=== PATIENT | female | born 2000 | race American Indian/Alaskan Native ===

== ENCOUNTER 2019-04-08 01:57 | Inpatient (IN) | payer MEDICAID ==
[2019-04-08] MEDS ORDERED: Methylergonovine 0.2 MG/1 ML Amp IM PRN (03:22)
[2019-04-08] MEDS ORDERED: Carboprost Tromethamine 250 MCG/1 ML Amp IM PRN (03:22)
[2019-04-08] MEDS ORDERED: Lidocaine 1% 30 ML SDV INJECT PRN (03:22)
[2019-04-08] MEDS ORDERED: Tranexamic Acid 1,000 MG in Sodium Chloride 0.9% 100 ML IV PRN (03:22)
[2019-04-08] MEDS ORDERED: Misoprostol 400 MCG (4 X 100 MCG TAB) RECTAL PRN (03:22)
[2019-04-08] MEDS ORDERED: Lactated Ringers 1,000 ML IV ONE (03:22)
[2019-04-08] MEDS ORDERED: Sodium Chloride 0.9% 10 ML Syringe FLUSH PRN ×2 (03:22→09:07)
[2019-04-08] MEDS ORDERED: Ondansetron 4 MG/2 ML SDV IVPUSH PRN (03:22)
[2019-04-08] MEDS ORDERED: Oxytocin/Normal Saline 30 UNIT/500 ML BAG IV SCH (03:30)
[2019-04-08] MEDS: Lactated Ringers 1,000 ML IV SCH ×2 (04:51→05:18)
[2019-04-08] MEDS ORDERED: fentaNYL 100 MCG/2 ML SDV ONE (05:08)
[2019-04-08] MEDS ORDERED: EPINEPHrine 1 MG/1 ML Amp ONE (05:08)
[2019-04-08] MEDS ORDERED: Sodium Bicarbonate 4.2% 2.5 MEQ/5 ML SDV ONE (05:08)
--- NOTE | 2019-04-08 05:39 | PCM.SN ---
- Free Text/Narrative Note: Intrathecal, sitting position, sterile prep and drape, 1% lidocaine w bicarb for skinwheal to L3 L4 interspace, introducer, 24 ga pencan x 1. Pos CSF, neg heme, neg parasthesia. 0.1 ml pf 1:1000 epi, 15 mcg pf sufenta, 35 mcg pf fentanyl, 0.4 ml pf ns and 6 mg of 0.75% pf bupivacaine injected after CSF aspiration. Pt to L lateral position. Procedure time 0505 to 0529
--- NOTE | 2019-04-08 09:06 | HP ---
PATIENT IDENTIFICIATION: Sania Waldron is a 18-year-old, G1, P0, interim at 39-3/7 weeks, confirmed with 12-week ultrasound who presents with vaginal leaking and contractions. HISTORY OF PRESENT ILLNESS: The patient states she has had vaginal leaking at approximately 1930 hours on 04/07/2019 where she was at [place], described as clear fluid enough to soak through her clothing and getting worse over time associated with contractions that started at the same time, increasing in frequency and intensity to the point that they are coming every 2 to 5 minutes, felt in the lower abdomen, rated 5 to 6 out of 10 on a pain scale. To put this in context, she is GBS negative. Had anemia of with hemoglobin as low as 9.6 on 01/18/2019 and she is GBS negative from 03/15/2019. Records were called for, reviewed as below, and supplemented by patient history. ANTEPARTUM LABORATORIES: ABO blood type O positive, negative antibody. Rubella immune. Syphilis antibody is nonreactive. Negative hepatitis B surface antigen, hep C, HIV, GC, and Chlamydia. Wet prep was within normal limits. One- hour GTT on 01/18/2019 was 73. Hemoglobin was 9.6 and GBS negative on 03/15/2019. ALLERGIES: None. MEDICATIONS: 1. vitamins. 2. Iron sulfate 325 b.i.d. PAST MEDICAL HISTORY: Remarkable for depression and pre was on medications for this. PAST SURGICAL HISTORY: Negative. FAMILY HISTORY: Diabetes in paternal grandmother. Negative family history of anesthesia, bleeding problems, or defects. SOCIAL HISTORY: The patient lives in [place] with her parents. Father of baby is Neil Silva. He lives in [place] and was planning on getting back to [place]. The patient denies any alcohol, tobacco, or drug use. REVIEW OF SYSTEMS: Otherwise reviewed and felt to be contributory for mild trace lower extremity edema bilaterally. Otherwise, review of systems fully reviewed and felt to be noncontributory other than the above. OBJECTIVE: Vital Signs: Blood pressure 132/82, heart rate 88, the patient feels afebrile. Appearance: Female, appears her stated age, acting appropriate for age. Nontoxic appearance. Breathing through contractions, but answering questions appropriately in between. HEENT: Head atraumatic. EOMs intact. PERRLA. No scleral icterus. No obvioius otorhinorrhea. Mucous membranes moist. Neck: No obvious tenderness. Lungs: Clear to auscultation bilaterally. No increased work of breathing. Heart: S1, S2 rhythm rate and rhythm. Abdomen: Gravid. Arnav indeterminate. Nontender, nondistended. Bowel sounds positive. No organomegaly, pulsatile masses, or obvious hernias. No rebound, rigidity, or guarding. Monitors applied. : Normal external female genitalia. Normal position and presentation of the urethra. Vaginal exam, initially done with AmniSure was positive and then per nurse was tight 3 cm, 100% effaced, -2 to -3 station. My examination shortly thereafter did reveal her to be 3 cm, 100% effaced, 0 to -1 station, vertex suspected and a forebag was felt and artificial rupture of membranes of this was done after discussing with the patient yielding clear fluid. INVESTIGATIONS: CBC pending. NST was found to be reactive and reassuring with heart tone baseline in the 140s to 150s. Tocometer reveals contractions every 2 to 5 minutes. ASSESSMENT AND PLAN: 1. Intrauterine at 39-3/7 weeks confirmed with 12-week ultrasound. 2. Spontaneous rupture of membranes at 1930 hours on 04/07/2019. 3. Forebag rupture of membranes at approximately 3:30 a.m. as above. 4. Occasional contractions with suspected labor. 5. Group B Streptococcus negative. 6. Anemia of . Hemoglobin pending. 7. G1, P0. PLAN: The patient will be admitted. We will start Pitocin as needed and follow clinically and closely thereafter. Discussed with the patient these plans. She understands and agrees with the above treatment plan. [facility] /[id number]
[2019-04-08] MEDS ORDERED: Simethicone 80 MG Tab.Chew PO PRN (09:07)
[2019-04-08] MEDS ORDERED: Zolpidem 5 MG Tab PO PRN (09:07)
[2019-04-08] MEDS ORDERED: Oxytocin 10 Units/1 ML SDV IM PRN (09:07)
[2019-04-08] MEDS ORDERED: Benzocaine/Menthol 20%-0.5% Spray 56 GM Canister TOP PRN (09:07)
[2019-04-08] MEDS: Ibuprofen 800 MG Tab PO PRN ×2 (11:25→20:25)
--- NOTE | 2019-04-08 11:39 | DEL ---
DATE: 04/08/2019 PREOPERATIVE DIAGNOSES: 1. Intrauterine at 39 and 3/7 weeks, confirmed with 12 weeks ultrasound. 2. Spontaneous rupture of membranes at 1930 hours on 04/07/2019. 3. Occasional contractions upon admission. 4. GBS negative. 5. Anemia of with admit hemoglobin being 11.2. POSTOPERATIVE DIAGNOSES: 1. Intrauterine at 39 and 3/7 weeks, confirmed with 12 weeks ultrasound - delivered. 2. Spontaneous rupture of membranes at 1930 hours on 04/07/2019. 3. Occasional contractions upon admission. 4. GBS negative. 5. Anemia of with admit hemoglobin being 11.2. 6. Anterior to urethra laceration with bleeding vessel requiring suture ligation. 7. First-degree perineal laceration Bleeding - repaired. PROCEDURES PERFORMED: NST followed by artificial rupture of membranes and spontaneous vaginal delivery with repair of periurethral laceration anterior to the urethra and first-degree perineal laceration, both bleeding. ANESTHESIA: The patient did receive an intrathecal in the first stage of labor. ESTIMATED BLOOD LOSS: 300 mL. FINDINGS: Female with scores 8 and 9, weight pending. 5 mm anterior to the urethra, a bleeding vessel noted, [id number] stitched and made hemostatic with visualization of her urethra noted during the repair and avoided. First-degree perineal laceration - repaired as bleeding. SUMMARY OF EVENTS: The patient is a 18-year-old, G1, P0, intrauterine at 39 and 3/7 weeks, confirmed with 12 weeks ultrasound, who presented with spontaneous rupture of membranes at 1930 hours on 04/07/2019. 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 She had a positive AmniSure and some occasional contractions. She was evaluated and forebag was noted and artificial rupture of membranes was done of this yielding clear fluid. She was GBS negative. She was followed closely thereafter. Did not require any Pitocin and was found to continue into active labor. She received an intrathecal for first stage of labor. I was called to the room, she was complete and pushing. Upon my arrival to the room, I donned sterile gown and gloves, and with the patient pushing with contractions, vertex was delivered in a JAIME presentation followed by anterior and posterior shoulder as well as rest of the infant without difficulty. Mouth and nares were suctioned. Cord was doubly clamped and cut. Infant was brought over to warmer. Then, approximately 10 mL of cord blood was obtained for labs. Placenta then delivered with gentle cord traction and fundal massage within 15 minutes. Perineum, vagina, and perirectal areas were then examined and noted to have anterior to urethra at least 5 mm to this was a bleeding vessel requiring a [id number] stitch with 3-0 Vicryl for hemostasis and a first-degree perineal laceration that was repaired in usual fashion using 3-0 Vicryl. urethra visualized throughout anterior repair and care made not to suture this structure. Thereafter, minimal bleeding was noted. Mother and infant are currently stable at the time of dictation. [facility] /[id number]
--- NOTE | 2019-04-08 12:29 | OBOUT ---
DATE: 04/08/2019 TIME: 2:03 to 2:23. REASON FOR NST: 1. Intrauterine , 39-3/7 weeks, confirmed with 12-week ultrasound. 2. Spontaneous rupture of membranes at 1930 hours on 04/07/2019. 3. Occasional contraction. 4. GBS negative. 5. Anemia of , hemoglobin pending. 6. G1, P0. NST INTERPRETATION: During this time period, heart tone baseline is approximately 140, and there are at least two 15 x 15 beats per minute accelerations, making this strip reactive. It is also noted to be reassuring. Tocometer reveals potential of 2 to 3 contractions felt by the patient. Blood pressure 132/82, heart rate 88. The patient feels afebrile. ASSESSMENT: 1. Nonstress test, reactive and reassuring. 2. Tocometer with contractions. PLAN: Please see admit history and physical for further details. [facility] /[id number]
[2019-04-08] MEDS: Acetaminophen 325 MG Tab PO PRN (18:01)
[2019-04-08] MEDS: Docusate Sodium 100 MG Cap PO PRN (18:02)
[2019-04-09] MEDS: Ibuprofen 800 MG Tab PO PRN ×2 (08:12→16:47)
[2019-04-09] MEDS: Docusate Sodium 100 MG Cap PO PRN ×2 (08:12→21:18)
[2019-04-09] MEDS: Prenatal Multivitamin with Calcium/Folic Acid/Iron Tab PO SCH (08:12)
--- NOTE | 2019-04-09 11:03 | PN ---
DATE: 04/09/2019 day #1. SUBJECTIVE: The patient is tolerating p.o., ambulating, urinating, and passing flatus. She denies any chest pain, shortness of breath, or lightheadedness. OBJECTIVE: Vital Signs: Temperature 98.9, heart rate 98, blood pressure 96/50 and then recheck 115/64, and respiratory rate 16. Lungs: Clear to auscultation bilaterally. Heart: S1 and S2. Regular rate and rhythm. Abdomen: Firm uterus -1 below umbilicus. Extremities: No peripheral edema. No calf pain. DATA: White cell count 10.5, hemoglobin 7.9 from predelivery hemoglobin of 11.2, platelets 168. ASSESSMENT: 1. day #1, status post spontaneous vaginal delivery. 2. Anemia of acute blood loss. Hemoglobin from 11.2, down to 7.9. No symptoms currently. We will continue to follow clinically and closely. Recheck complete blood count tomorrow. The patient understands and agrees with the above treatment plan. Possible discharge tomorrow discussed as well. [facility] /[id number]
[2019-04-09] MEDS: Acetaminophen 325 MG Tab PO PRN (21:17)
[2019-04-10] MEDS: Ibuprofen 800 MG Tab PO PRN ×2 (08:41→20:21)
[2019-04-10] MEDS: Docusate Sodium 100 MG Cap PO PRN ×2 (08:41→20:21)
[2019-04-10] MEDS: Prenatal Multivitamin with Calcium/Folic Acid/Iron Tab PO SCH (08:41)
[2019-04-10] MEDS ORDERED: Sodium Bicarbonate 4.2% 2.5 MEQ/5 ML SDV ONE (22:29)
[2019-04-10] MEDS ORDERED: fentaNYL 100 MCG/2 ML SDV ITHECAL ONE (22:29)
[2019-04-10] MEDS ORDERED: EPINEPHrine 1 MG/1 ML Amp ONE (22:29)
--- NOTE | 2019-04-11 09:27 | DISCH ---
ADMITTING DIAGNOSES: 1. Intrauterine at 39-3/7 weeks, confirmed with 12-week ultrasound. 2. Spontaneous rupture of membranes on 04/07/2019 at 1930 hours. 3. Occasional contractions. 4. Group B Streptococcus negative. 5. Anemia of . Hemoglobin 11.2 upon admission. 6. G1, P0. 7. Forebag rupture of membranes at approximately 3:30. DISCHARGE DIAGNOSES: 1. Intrauterine at 39-3/7 weeks, confirmed with 12-week ultrasound- delivered. 2. Spontaneous rupture of membranes on 04/07/2019 at 1930 hours. 3. Occasional contractions. 4. Group B Streptococcus negative. 5. Anemia of . Hemoglobin 11.2 upon admission. 6. G1, P0. 7. Forebag rupture of membranes at approximately 3:30. 8. Anemia of acute blood loss, hemoglobin dropping down to 7.9 on day #1 with hemoglobin increasing back to 8.9 on date of discharge, 04/10/2019. 9. Anterior to urethra well away from it, a laceration with bleeding, requiring suture ligation over a blood vessel. 10.First-degree perineal laceration repaired due to bleeding. PROCEDURES PERFORMED: NST, artificial rupture of membranes, spontaneous vaginal delivery on 04/08/2019 with repair of periurethral laceration and first-degree perineal laceration. Procedure performed by Siva Geronimo MD. HISTORY OF PRESENT ILLNESS: Please see H and P. SUMMARY OF HOSPITAL COURSE: The patient was admitted on the above date with the above diagnoses, underwent the above procedures, then went on to have a spontaneous vaginal delivery yielding a female with score 8 and 9, weighing 8 pounds 13 ounces (3995 g). Please see delivery note for further details. day #1, please see progress notes. Hemoglobin dropped down to 7.9. No symptoms were noted. day #2, date of discharge, the patient was tolerating p.o., ambulating, urinating, passing flatus, and requesting discharge. PHYSICAL EXAMINATION: Vital Signs: Last set of vitals updated and listed in the chart; temperature 97.9, heart rate 93, blood pressure 106/63, respiratory rate 16. Lungs: Clear to auscultation bilaterally Heart: S1, S2. Regular rate and rhythm. Abdomen: Firm uterus -1 below umbilicus. Trace pedal edema. No calf pain. DISCHARGE LABORATORY DATA: White cell count 10.2, hemoglobin 8.9 compared to predelivery hemoglobin 11.2 and the day before being 7.9, platelets 183. CONDITION ON DISCHARGE COMPARED TO CONDITION ON ADMISSION: Improved. DISCHARGE INSTRUCTIONS: 1. Diet: As tolerated. 2. Activity: No lifting more than 20 pounds. No sit-ups, straining, and pelvic rest for the next 6 weeks with immediate return to fertility discussed with the patient. 3. Reasons to return or go to the emergency room were discussed with the patient in detail including, but no limited to, temperature greater than 100.4, foul-smelling discharge, red hot tender breasts, or increased vaginal bleeding. DISCHARGE MEDICATIONS: [id number] Tylenol or ibuprofen for pain, iron sulfate 325 b.i.d. x6 weeks, vitamins x6 weeks, and Colace 100 mg b.i.d. p.r.n., #60, no refills. Discussed use of medication, adverse and uwanted effects. FOLLOWUP: 6 weeks . The patient is rooming in at this point in time as the infant is staying for jaundice and needs to feed and is requiring intensive triple phototherapy. Otherwise, we will plan on discharge on the evening of 04/10/2019. The patient understands and agrees with the above treatment plan. Please see discharge paperwork for further details as well. [facility] /[id number]
== END 2019-04-10 22:30 | disposition home or self-care (01) | DRG 806 ==
LOC: DL.OBCHECK 01:57 → DL.OB 03:22 → OBSVTOIN 08:45 → DL.MS 04-10 23:11
PROVIDERS: ADMIT Family Medicine; ATTEND Family Medicine
PROC: 10E0XZZ Delivery of Products of Conception, External Approach (ICD-10-PCS; principal; 2019-04-08)
PROC: 0HQ9XZZ Repair Perineum Skin, External Approach (ICD-10-PCS; 2019-04-08)
DX: Z34.93 Encounter for supervision of normal pregnancy, unspecified, third trimester (principal); O99.02 Anemia complicating childbirth; D62 Acute posthemorrhagic anemia; Z37.0 Single live birth; O71.5 Other obstetric injury to pelvic organs; O70.0 First degree perineal laceration during delivery; Z3A.39 39 weeks gestation of pregnancy
CPT/HCPCS: 36415; 59025; 59409; 84112; 85027; A9270-GY; J0171; J2405; J2590; J3010; J7120

== ENCOUNTER 2020-01-08 01:47 | Emergency (ER) | payer MEDICAID ==
--- NOTE | 2020-01-08 02:20 | EDM.PDOCBH ---
<Amy Ramirez - Last Filed: 01/08/20 03:48> ED HPI GENERAL MEDICAL PROBLEM - General Chief Complaint: Drug or Alcohol Abuse Stated Complaint: PD Time Seen by Provider: 01/08/20 02:00 Source of Information: Reports: Patient, Police, RN History Limitations: Reports: No Limitations - History of Present Illness INITIAL COMMENTS - FREE TEXT/NARRATIVE: ED with [employer] reported ran into bar, hiding, paranoid people after her. Admits recent meth use, IV 2 days prior , line today. coming down, hearing voices. felt suicidal so took a bunch of pills, that she had at home, unsure of amount, thinks multivitamin and concerta and some other white pill, threw up about 20mins after multiple times. feels heart racing. Denied ETOH. LMP maybe 3 weeks ago. Possible . - Related Data Allergies Allergy/AdvReac Type Severity Reaction Status Date / Time No Known Allergies Allergy Verified 01/08/20 01:58 Home Meds: Home Meds . [No Known Home Meds] 01/08/20 [History] Past Medical History - Past Health History Medical/Surgical History: Denies Medical/Surgical History [employer] History: Reports: Psychiatric History: Reports: ADHD, Addiction, Anxiety, Depression, Suicide Attempt, Suicidal Ideation, Other (See Below) Other Psychiatric History: Hx of cutting, patient says that was a few years ago and is in a much better place at this time Hematologic History: Reports: Anemia Social & Family History - Family History Family Medical History: Noncontributory - Tobacco Use Tobacco Use Status *Q: Current Every Day Tobacco User Years of Tobacco use: 4 Packs/Tins Daily: 0.2 Second Hand Smoke Exposure: Yes - Caffeine Use Caffeine Use: Reports: None - Recreational Drug Use Recreational Drug Use: Yes Drug Use in Last 12 Months: Yes Recreational Drug Type: Reports: Methamphetamine ED EXAM, BEHAVIORAL HEALTH - Physical Exam Exam: See Below Exam Limited By: No Limitations General Appearance: Alert, Anxious Eye Exam: Bilateral Eye: EOMI, PERRL Ears: Normal External Exam Nose: Normal Inspection Throat/Mouth: Normal Inspection Neck: Normal Inspection Respiratory/Chest: No Respiratory Distress, Lungs Clear, Normal Breath Sounds Cardiovascular: Regular Rate, Rhythm, Tachycardia GI/Abdominal: Normal Bowel Sounds, Soft Back Exam: Normal Inspection, Full Range of Motion Extremities: Normal Inspection Neurological: Alert Psychiatric: Alert, Normal Cognition, Restless, Poor Eye Contact, Suicidal Thoughts, Pressured Speech, Paranoid Thoughts Skin Exam: Warm, Dry, Signs of self injury (left inner forearm.) COURSE, BEHAVIORAL HEALTH COMP - Course Re-Assessment/Re-Exam: Denies suicidal thoughts at present, Remains calm cooperative tolerating po fluids. Departure - Departure Disposition: Home, Self-Care 01 Clinical Impression: Methamphetamine abuse, Suicide attempt by drug overdose - Discharge Information Instructions: Methamphetamines Use Disorder Forms: ED Department Discharge Additional Instructions: Follow up with Naheed from [facility] tomorrow (01/08/20) for ongoing plan. Refrain from using methamphetamines and additional illicit substances. Sepsis Event Note (ED) - Evaluation Sepsis Screening Result: No Definite Risk <Fabi Farias - Last Filed: 01/08/20 11:12> ED ROS GENERAL - Review of Systems Review Of Systems: Comprehensive ROS is negative, except as noted in HPI. ED EXAM, BEHAVIORAL HEALTH - Physical Exam Exam: See Below #1 Interpretation EKG Date: 01/08/20 Time: 08:19 Rhythm: Other (Sinus Tachycardia) Rate (Beats/Min): 107 Sophia: Normal P-Wave: Present QRS: Normal ST-T: Normal QT: Normal (Sinus Tach; No evidence of acute ischemia) Comparison: No Change COURSE, BEHAVIORAL HEALTH COMP - Course Discharge vs Psych Eval/Treatment:: 01/08/20 11:16 In consultation with Naheed from the [facility], patient is to discharge home in the care of mother. She will follow up at the [facility] tomorrow (01/07/02) for ongoing sobriety plan. Departure - Departure Time of Disposition: 11:12 Condition: Good - Discharge Information *PRESCRIPTION DRUG MONITORING PROGRAM REVIEWED*: Not Applicable *COPY OF PRESCRIPTION DRUG MONITORING REPORT IN PATIENT MARSHALL: Not Applicable <Karissa Roberson - Last Filed: 01/08/20 11:37> COURSE, BEHAVIORAL HEALTH COMP - Course Vital Signs: Last Vital Signs Temp 98.8 F 01/08/20 10:08 Pulse 74 01/08/20 10:08 Resp 20 01/08/20 10:08 BP 110/61 01/08/20 10:08 Pulse Ox 100 01/08/20 10:08 Orders, Labs, Meds: Active Orders 24 hr Category Date Time Status EKG 12 Lead [EKG Documentation Completion] [] URGENT Care 01/08/20 02:13 Active EKG 12 Lead [EKG Documentation Completion] [] URGENT Care 01/08/20 08:00 Active LORazepam [Ativan] Med 01/08/20 03:44 Active 1 mg IVPUSH ONETIME PRN Medication Orders Lorazepam (Ativan) 1 mg IVPUSH ONETIME PRN PRN Reason: Agitation Laboratory Tests 01/08/20 01/08/20 01/08/20 Range/Units 01:59 01:59 01:59 WBC 6.3 (5.0-10.0) 10^3/uL RBC 4.97 (4.2-5.4) 10^6/uL Hgb 14.7 D (12.0-16.0) g/dL Hct 44.8 (37.0-47.0) % MCV 90.1 (80-100) fL MCH 29.6 (27.0-34.0) pg MCHC 32.8 L (33.0-35.0) g/dL Plt Count 282 D (150-450) 10^3/uL Neut % (Auto) 77.6 H (42.2-75.2) % Lymph % (Auto) 11.0 L (20.5-50.1) % Kinney % (Auto) 11.2 H (2-8) % Eos % (Auto) 0.0 L (1.0-3.0) % Baso % (Auto) 0.2 (0.0-1.0) % Sodium 141 (136-145) mmol/L Potassium 4.0 (3.5-5.1) mmol/L Chloride 103 (98-107) mmol/L Carbon Dioxide 26 (21-32) mmol/L Anion Gap 16.0 H (7-13) mEq/L BUN 12 (7-18) mg/dL Creatinine 1.04 H (0.55-1.02) mg/dL Est Cr Clr Drug Dosing 70.78 mL/min Estimated GFR (MDRD) > 60 BUN/Creatinine Ratio 11.5 (No establ ref range) Glucose 144 H (74-99) mg/dL Calcium 9.6 (8.5-10.1) mg/dL Magnesium (1.8-2.4) mg/dL Iron 50 (50-175) ug/dL Total Bilirubin 1.1 H (0.2-1.0) mg/dL AST 19 (15-37) U/L ALT 23 (14-59) U/L Alkaline Phosphatase 80 (46-116) U/L Total Protein 8.1 (6.4-8.2) g/dL Albumin 4.0 (3.4-5.0) g/dL Globulin 4.1 Albumin/Globulin Ratio 1.0 HCG, Qual Negative Urine Color (YELLOW) Urine Appearance (CLEAR) Urine pH (5.0-9.0) Ur Specific [place] (1.005-1.030) Urine Protein (NEGATIVE) Urine Glucose (UA) (NEGATIVE) Urine Ketones (NEGATIVE) Urine Occult Blood (NEGATIVE) Urine Nitrite (NEGATIVE) Urine Bilirubin (NEGATIVE) Urine Urobilinogen (0.2-1.0) mg/dL Ur Leukocyte Esterase (NEGATIVE) Urine RBC /HPF Urine WBC (0-5/HPF) /HPF Ur Epithelial Cells (NOT SEEN) /HPF Calcium Oxalate Crystal (NOT SEEN) /HPF Amorphous Sediment (NOT SEEN) /HPF Urine Bacteria (0-FEW/HPF) /HPF Urine Mucus (NOT SEEN) /LPF Salicylates (2.8-20(Therapeutic)) mg/dL Urine Opiates Screen (NEGATIVE) Ur Oxycodone Screen (NEGATIVE) Urine Methadone Screen (NEGATIVE) Acetaminophen (10-30 (Therapeutic)) ug/mL Ur Barbiturates Screen (NEGATIVE) U Tricyclic Antidepress (NEGATIVE) Ur Phencyclidine Scrn (NEGATIVE) Ur Amphetamine Screen (NEGATIVE) U Methamphetamines Scrn (NEGATIVE) Urine MDMA Screen (NEGATIVE) U Benzodiazepines Scrn (NEGATIVE) Urine Cocaine Screen (NEGATIVE) U Marijuana (THC) Screen (NEGATIVE) Ethyl Alcohol < 3 (0) mg/dL SARS CoV-2 RNA Rapid BIMAL (NEGATIVE) 01/08/20 01/08/20 01/08/20 Range/Units 01:59 01:59 01:59 WBC (5.0-10.0) 10^3/uL RBC (4.2-5.4) 10^6/uL Hgb (12.0-16.0) g/dL Hct (37.0-47.0) % MCV (80-100) fL MCH (27.0-34.0) pg MCHC (33.0-35.0) g/dL Plt Count (150-450) 10^3/uL Neut % (Auto) (42.2-75.2) % Lymph % (Auto) (20.5-50.1) % Kinney % (Auto) (2-8) % Eos % (Auto) (1.0-3.0) % Baso % (Auto) (0.0-1.0) % Sodium (136-145) mmol/L Potassium (3.5-5.1) mmol/L Chloride (98-107) mmol/L Carbon Dioxide (21-32) mmol/L Anion Gap (7-13) mEq/L BUN (7-18) mg/dL Creatinine (0.55-1.02) mg/dL Est Cr Clr Drug Dosing mL/min Estimated GFR (MDRD) BUN/Creatinine Ratio (No establ ref range) Glucose (74-99) mg/dL Calcium (8.5-10.1) mg/dL Magnesium 2.1 (1.8-2.4) mg/dL Iron (50-175) ug/dL Total Bilirubin (0.2-1.0) mg/dL AST (15-37) U/L ALT (14-59) U/L Alkaline Phosphatase (46-116) U/L Total Protein (6.4-8.2) g/dL Albumin (3.4-5.0) g/dL Globulin Albumin/Globulin Ratio HCG, Qual Urine Color (YELLOW) Urine Appearance (CLEAR) Urine pH (5.0-9.0) Ur Specific [place] (1.005-1.030) Urine Protein (NEGATIVE) Urine Glucose (UA) (NEGATIVE) Urine Ketones (NEGATIVE) Urine Occult Blood (NEGATIVE) Urine Nitrite (NEGATIVE) Urine Bilirubin (NEGATIVE) Urine Urobilinogen (0.2-1.0) mg/dL Ur Leukocyte Esterase (NEGATIVE) Urine RBC /HPF Urine WBC (0-5/HPF) /HPF Ur Epithelial Cells (NOT SEEN) /HPF Calcium Oxalate Crystal (NOT SEEN) /HPF Amorphous Sediment (NOT SEEN) /HPF Urine Bacteria (0-FEW/HPF) /HPF Urine Mucus (NOT SEEN) /LPF Salicylates < 2.8 L (2.8-20(Therapeutic)) mg/dL Urine Opiates Screen (NEGATIVE) Ur Oxycodone Screen (NEGATIVE) Urine Methadone Screen (NEGATIVE) Acetaminophen 0 L (10-30 (Therapeutic)) ug/mL Ur Barbiturates Screen (NEGATIVE) U Tricyclic Antidepress (NEGATIVE) Ur Phencyclidine Scrn (NEGATIVE) Ur Amphetamine Screen (NEGATIVE) U Methamphetamines Scrn (NEGATIVE) Urine MDMA Screen (NEGATIVE) U Benzodiazepines Scrn (NEGATIVE) Urine Cocaine Screen (NEGATIVE) U Marijuana (THC) Screen (NEGATIVE) Ethyl Alcohol (0) mg/dL SARS CoV-2 RNA Rapid BIMAL (NEGATIVE) 01/08/20 01/08/20 01/08/20 Range/Units 02:43 02:43 02:55 WBC (5.0-10.0) 10^3/uL RBC (4.2-5.4) 10^6/uL Hgb (12.0-16.0) g/dL Hct (37.0-47.0) % MCV (80-100) fL MCH (27.0-34.0) pg MCHC (33.0-35.0) g/dL Plt Count (150-450) 10^3/uL Neut % (Auto) (42.2-75.2) % Lymph % (Auto) (20.5-50.1) % Kinney % (Auto) (2-8) % Eos % (Auto) (1.0-3.0) % Baso % (Auto) (0.0-1.0) % Sodium (136-145) mmol/L Potassium (3.5-5.1) mmol/L Chloride (98-107) mmol/L Carbon Dioxide (21-32) mmol/L Anion Gap (7-13) mEq/L BUN (7-18) mg/dL Creatinine (0.55-1.02) mg/dL Est Cr Clr Drug Dosing mL/min Estimated GFR (MDRD) BUN/Creatinine Ratio (No establ ref range) Glucose (74-99) mg/dL Calcium (8.5-10.1) mg/dL Magnesium (1.8-2.4) mg/dL Iron (50-175) ug/dL Total Bilirubin (0.2-1.0) mg/dL AST (15-37) U/L ALT (14-59) U/L Alkaline Phosphatase (46-116) U/L Total Protein (6.4-8.2) g/dL Albumin (3.4-5.0) g/dL Globulin Albumin/Globulin Ratio HCG, Qual Urine Color Dark yellow (YELLOW) Urine Appearance Slightly cloudy (CLEAR) Urine pH 6.0 (5.0-9.0) Ur Specific [place] >= 1.030 (1.005-1.030) Urine Protein 30 H (NEGATIVE) Urine Glucose (UA) Negative (NEGATIVE) Urine Ketones 15 H (NEGATIVE) Urine Occult Blood Negative (NEGATIVE) Urine Nitrite Negative (NEGATIVE) Urine Bilirubin Negative (NEGATIVE) Urine Urobilinogen 0.2 (0.2-1.0) mg/dL Ur Leukocyte Esterase Negative (NEGATIVE) Urine RBC Not seen /HPF Urine WBC 0-5 (0-5/HPF) /HPF Ur Epithelial Cells Few (NOT SEEN) /HPF Calcium Oxalate Crystal Occasional H (NOT SEEN) /HPF Amorphous Sediment Few (NOT SEEN) /HPF Urine Bacteria Few (0-FEW/HPF) /HPF Urine Mucus Rare (NOT SEEN) /LPF Salicylates (2.8-20(Therapeutic)) mg/dL Urine Opiates Screen Negative (NEGATIVE) Ur Oxycodone Screen Negative (NEGATIVE) Urine Methadone Screen Negative (NEGATIVE) Acetaminophen (10-30 (Therapeutic)) ug/mL Ur Barbiturates Screen Negative (NEGATIVE) U Tricyclic Antidepress Negative (NEGATIVE) Ur Phencyclidine Scrn Negative (NEGATIVE) Ur Amphetamine Screen Positive H (NEGATIVE) U Methamphetamines Scrn Positive H (NEGATIVE) Urine MDMA Screen Positive H (NEGATIVE) U Benzodiazepines Scrn Negative (NEGATIVE) Urine Cocaine Screen Negative (NEGATIVE) U Marijuana (THC) Screen Positive H (NEGATIVE) Ethyl Alcohol (0) mg/dL SARS CoV-2 RNA Rapid BIMAL Negative (NEGATIVE) Medications Generic Name Dose Route Start Last Admin Trade Name Freq PRN Reason Stop Dose Admin Lorazepam 1 mg 01/08/20 03:44 Ativan IVPUSH ONETIME PRN Agitation Discontinued Medications Generic Name Dose Route Start Last Admin Trade Name Freq PRN Reason Stop Dose Admin Bacitracin 1 dose 01/08/20 03:40 Bacitracin Oint 1 Gm TOP 01/08/20 03:41 ONETIME ONE Sodium Chloride 1,000 mls @ 999 mls/hr 01/08/20 02:40 Normal Saline IV 01/08/20 03:40 .BOLUS ONE Sodium Chloride 1,000 mls @ 999 mls/hr 01/08/20 02:42 01/08/20 02:49 Normal Saline IV 01/08/20 03:42 999 mls/hr .BOLUS ONE Administration Sepsis Event Note (ED) - Focused Exam Vital Signs: Vital Signs Temp Pulse Resp BP Pulse Ox 01/08/20 10:08 98.8 F 74 20 110/61 100 01/08/20 09:13 99.1 F 116 H 18 113/69 98 01/08/20 08:26 99.4 F 117 H 18 117/69 100 01/08/20 07:30 98.4 F 103 H 20 104/62 100 01/08/20 03:54 97.7 F 119 H 16 130/103 H 98 01/08/20 02:45 117 H 18 121/83 99 01/08/20 01:48 96.8 F L 142 H 18 143/104 H 99
[2020-01-08 02:24] LABS: CHLORIDE,CL 103 mmol/L (98-107); SODIUM,NA 141 mmol/L (136-145)
[2020-01-08] MEDS ORDERED: Sodium Chloride 0.9% 1,000 ML IV ONE ×2 (02:40→02:42)
[2020-01-08] MEDS ORDERED: Bacitracin Oint 1 GM U/D Packet TOP ONE (03:40)
[2020-01-08] MEDS ORDERED: LORazepam 2 MG/ML SDV IVPUSH PRN (03:44)
== END 2020-01-08 11:49 | disposition home or self-care (01) ==
LOC: DL.ED 01:47
DX: T50.902A Poisoning by unspecified drugs, medicaments and biological substances, intentional self-harm, initial encounter (principal); F15.10 Other stimulant abuse, uncomplicated; F17.210 Nicotine dependence, cigarettes, uncomplicated; Z20.828 Contact with and (suspected) exposure to other viral communicable diseases
CPT/HCPCS: 36415; 80053; 80305-QW; 80307; 81001; 83540; 83735; 84703; 85025; 93005; 99285-25; J7030; U0002

== ENCOUNTER 2020-03-02 18:26 | Emergency (ER) | payer MEDICAID ==
[2020-03-02 18:59] LABS: ANION GAP 12.7 mEq/L (7-13); CHLORIDE,CL 104 mmol/L (98-107); SODIUM,NA 141 mmol/L (136-145)
[2020-03-02 19:02] LABS: ACETAMINOPHEN 0 ug/mL (10-30 (Therapeutic))
[2020-03-02] MEDS ORDERED: Cephalexin 500 MG Cap PO ONE (19:18)
--- NOTE | 2020-03-02 19:24 | EDM.PDOCBH ---
ED HPI GENERAL MEDICAL PROBLEM - General Chief Complaint: Behavioral/Psych Stated Complaint: P.V. Time Seen by Provider: 03/02/20 19:10 Source of Information: Reports: Patient History Limitations: Reports: No Limitations - History of Present Illness INITIAL COMMENTS - FREE TEXT/NARRATIVE: This 19 yo female patient reports to the ED due to self harm. The patient reports she was feeling "emotionally lost" at the time of harming herself. The patient admits to cutting her left wrist several times either yesterday or the day before. The patient reports she was drinking alcohol and using meth at the time of the injury. The patient reports she knows that she needs to see a counselor. The patient has already made positive change in her life by moving back into her parents home. The patient reports she currently does not have any suicidal thoughts or plans. Onset: Unknown/Unsure Duration: Day(s):, Constant, Getting Worse Location: Reports: Upper Extremity, Left (Wrist) Quality: Reports: Ache, Dull Severity: Mild Improves with: Reports: None Worsens with: Reports: None Context: Reports: Other Associated Symptoms: Reports: No Other Symptoms - Related Data Allergies Allergy/AdvReac Type Severity Reaction Status Date / Time No Known Allergies Allergy Verified 03/02/20 18:42 Home Meds: Home Meds . [No Known Home Meds] 01/08/20 [History] Past Medical History - Past Health History Medical/Surgical History: Denies Medical/Surgical History G[employer]OC[employer] History: Reports: Psychiatric History: Reports: ADHD, Addiction, Anxiety, Depression, Suicide Attempt, Suicidal Ideation, Other (See Below) Other Psychiatric History: Hx of cutting, patient says that was a few years ago and is in a much better place at this time Hematologic History: Reports: Anemia Social & Family History - Family History Family Medical History: No Pertinent Family History - Tobacco Use Tobacco Use Status *Q: Current Every Day Tobacco User Years of Tobacco use: 3 Packs/Tins Daily: 0.2 - Caffeine Use Caffeine Use: Reports: None - Recreational Drug Use Recreational Drug Use: Yes Drug Use in Last 12 Months: Yes Recreational Drug Type: Reports: Methamphetamine ED ROS GENERAL - Review of Systems Review Of Systems: Comprehensive ROS is negative, except as noted in HPI. ED EXAM, BEHAVIORAL HEALTH - Physical Exam Exam: See Below Exam Limited By: No Limitations General Appearance: Alert, WD/WN, Mild Distress Eye Exam: Bilateral Eye: EOMI, Normal Inspection, PERRL Ears: Normal External Exam, Normal Canal, Hearing Grossly Normal, Normal TMs Nose: Normal Inspection, Normal Mucosa, No Blood Throat/Mouth: Normal Inspection, Normal Lips, Normal Teeth, Normal Gums, Normal Oropharynx, Normal Voice, No Airway Compromise Head: Atraumatic, Normocephalic Neck: Normal Inspection, Supple, Non-Tender, Full Range of Motion Respiratory/Chest: No Respiratory Distress, Lungs Clear, Normal Breath Sounds, No Accessory Muscle Use, Chest Non-Tender Cardiovascular: Normal Peripheral Pulses, Regular Rate, Rhythm, No Edema, No Gallop, No JVD, No Murmur, No Rub GI/Abdominal: Normal Bowel Sounds, Soft, Non-Tender, No Organomegaly, No Distention, No Abnormal Bruit, No Mass (Female) Exam: Deferred Rectal (Female) Exam: Deferred Back Exam: Normal Inspection, Full Range of Motion, NT Extremities: Normal Range of Motion, No Pedal Edema, Normal Capillary Refill, Arm Pain (left wrist pain from cutting (self harm)) Neurological: Alert, Normal Mood/Affect, CN II-XII Intact, Normal Cognition, Normal Gait, Normal Reflexes, No Motor/Sensory Deficits, Oriented x 3 Psychiatric: Alert, Normal Affect, Normal Cognition, Oriented, Depressed Mood Skin Exam: Signs of self injury (left wrist lacerations (3). The wounds are more than 6 hours old and show signs of healing. ) COURSE, BEHAVIORAL HEALTH COMP - Course Vital Signs: Last Vital Signs Temp 36.8 C 03/02/20 18:27 Pulse 107 H 03/02/20 18:27 Resp 18 03/02/20 18:27 BP 89/64 L 03/02/20 18:27 Pulse Ox 100 03/02/20 18:27 Orders, Labs, Meds: Laboratory Tests 03/02/20 03/02/20 03/02/20 Range/Units 18:22 18:22 18:22 WBC (5.0-10.0) 10^3/uL RBC (4.2-5.4) 10^6/uL Hgb (12.0-16.0) g/dL Hct (37.0-47.0) % MCV (80-100) fL MCH (27.0-34.0) pg MCHC (33.0-35.0) g/dL Plt Count (150-450) 10^3/uL Neut % (Auto) (42.2-75.2) % Lymph % (Auto) (20.5-50.1) % [place] % (Auto) (2-8) % Eos % (Auto) (1.0-3.0) % Baso % (Auto) (0.0-1.0) % Sodium (136-145) mmol/L Potassium (3.5-5.1) mmol/L Chloride (98-107) mmol/L Carbon Dioxide (21-32) mmol/L Anion Gap (7-13) mEq/L BUN (7-18) mg/dL Creatinine (0.55-1.02) mg/dL Est Cr Clr Drug Dosing mL/min Estimated GFR (MDRD) BUN/Creatinine Ratio (No establ ref range) Glucose (74-99) mg/dL Calcium (8.5-10.1) mg/dL Total Bilirubin (0.2-1.0) mg/dL AST (15-37) U/L ALT (14-59) U/L Alkaline Phosphatase (46-116) U/L Total Protein (6.4-8.2) g/dL Albumin (3.4-5.0) g/dL Globulin Albumin/Globulin Ratio Urine Color Yellow (YELLOW) Urine Appearance Cloudy (CLEAR) Urine pH 6.0 (5.0-9.0) Ur Specific [place] >= 1.030 (1.005-1.030) Urine Protein >=300 H (NEGATIVE) Urine Glucose (UA) Negative (NEGATIVE) Urine Ketones Trace H (NEGATIVE) Urine Occult Blood Negative (NEGATIVE) Urine Nitrite Negative (NEGATIVE) Urine Bilirubin Negative (NEGATIVE) Urine Urobilinogen 1.0 (0.2-1.0) mg/dL Ur Leukocyte Esterase Negative (NEGATIVE) Urine RBC 0-5 /HPF Urine WBC 0-5 (0-5/HPF) /HPF Ur Epithelial Cells Many H (NOT SEEN) /HPF Amorphous Sediment Moderate H (NOT SEEN) /HPF Urine Bacteria Few (0-FEW/HPF) /HPF Urine Mucus Rare (NOT SEEN) /LPF Urine Other See note Urine HCG, Qual Negative Salicylates (2.8-20(Therapeutic)) mg/dL Urine Opiates Screen Negative (NEGATIVE) Ur Oxycodone Screen Negative (NEGATIVE) Urine Methadone Screen Negative (NEGATIVE) Acetaminophen (10-30 (Therapeutic)) ug/mL Ur Barbiturates Screen Negative (NEGATIVE) U Tricyclic Antidepress Negative (NEGATIVE) Ur Phencyclidine Scrn Negative (NEGATIVE) Ur Amphetamine Screen Positive H (NEGATIVE) U Methamphetamines Scrn Positive H (NEGATIVE) Urine MDMA Screen Negative (NEGATIVE) U Benzodiazepines Scrn Negative (NEGATIVE) Urine Cocaine Screen Negative (NEGATIVE) U Marijuana (THC) Screen Negative (NEGATIVE) Ethyl Alcohol (0) mg/dL 03/02/20 03/02/20 03/02/20 Range/Units 18:30 18:30 18:30 WBC 7.0 (5.0-10.0) 10^3/uL RBC 3.99 L (4.2-5.4) 10^6/uL Hgb 12.2 D (12.0-16.0) g/dL Hct 37.7 (37.0-47.0) % MCV 94.5 D (80-100) fL MCH 30.6 (27.0-34.0) pg MCHC 32.4 L (33.0-35.0) g/dL Plt Count 324 (150-450) 10^3/uL Neut % (Auto) 67.5 (42.2-75.2) % Lymph % (Auto) 18.8 L (20.5-50.1) % Sum[place] % (Auto) 11.7 H (2-8) % Eos % (Auto) 1.7 (1.0-3.0) % Baso % (Auto) 0.3 (0.0-1.0) % Sodium 141 (136-145) mmol/L Potassium 3.7 (3.5-5.1) mmol/L Chloride 104 (98-107) mmol/L Carbon Dioxide 28 (21-32) mmol/L Anion Gap 12.7 (7-13) mEq/L BUN 17 (7-18) mg/dL Creatinine 0.87 (0.55-1.02) mg/dL Est Cr Clr Drug Dosing 84.61 mL/min Estimated GFR (MDRD) > 60 BUN/Creatinine Ratio 19.5 (No establ ref range) Glucose 78 (74-99) mg/dL Calcium 8.6 (8.5-10.1) mg/dL Total Bilirubin 0.9 (0.2-1.0) mg/dL AST 11 L (15-37) U/L ALT 20 (14-59) U/L Alkaline Phosphatase 96 (46-116) U/L Total Protein 7.0 (6.4-8.2) g/dL Albumin 3.5 (3.4-5.0) g/dL Globulin 3.5 Albumin/Globulin Ratio 1.0 Urine Color (YELLOW) Urine Appearance (CLEAR) Urine pH (5.0-9.0) Ur Specific [place] (1.005-1.030) Urine Protein (NEGATIVE) Urine Glucose (UA) (NEGATIVE) Urine Ketones (NEGATIVE) Urine Occult Blood (NEGATIVE) Urine Nitrite (NEGATIVE) Urine Bilirubin (NEGATIVE) Urine Urobilinogen (0.2-1.0) mg/dL Ur Leukocyte Esterase (NEGATIVE) Urine RBC /HPF Urine WBC (0-5/HPF) /HPF Ur Epithelial Cells (NOT SEEN) /HPF Amorphous Sediment (NOT SEEN) /HPF Urine Bacteria (0-FEW/HPF) /HPF Urine Mucus (NOT SEEN) /LPF Urine Other Urine HCG, Qual Salicylates < 2.8 L (2.8-20(Therapeutic)) mg/dL Urine Opiates Screen (NEGATIVE) Ur Oxycodone Screen (NEGATIVE) Urine Methadone Screen (NEGATIVE) Acetaminophen 0 L (10-30 (Therapeutic)) ug/mL Ur Barbiturates Screen (NEGATIVE) U Tricyclic Antidepress (NEGATIVE) Ur Phencyclidine Scrn (NEGATIVE) Ur Amphetamine Screen (NEGATIVE) U Methamphetamines Scrn (NEGATIVE) Urine MDMA Screen (NEGATIVE) U Benzodiazepines Scrn (NEGATIVE) Urine Cocaine Screen (NEGATIVE) U Marijuana (THC) Screen (NEGATIVE) Ethyl Alcohol 3 (0) mg/dL Medications Discontinued Medications Generic Name Dose Route Start Last Admin Trade Name Freq PRN Reason Stop Dose Admin Bacitracin 1 dose 03/02/20 20:41 Bacitracin Oint 1 Gm TOP 03/02/20 20:42 ONETIME ONE Cephalexin 500 mg 03/02/20 19:18 Keflex PO 03/02/20 19:19 ONETIME ONE Re-Assessment/Re-Exam: The patient was advised of the lab results and agrees to talk with [facility]. Nursing staff called to have [facility] come to the ED to evaluate the patient. At 1950, [facility] was into the ED to visit with the patient. Departure - Departure Time of Disposition: 20:43 Disposition: Home, Self-Care 01 Condition: Fair Clinical Impression: Self-harming behavior Laceration of left wrist Qualifiers: Encounter type: initial encounter Qualified Code(s): S61.512A - Laceration without foreign body of left wrist, initial encounter - Discharge Information *PRESCRIPTION DRUG MONITORING PROGRAM REVIEWED*: Not Applicable *COPY OF PRESCRIPTION DRUG MONITORING REPORT IN PATIENT MARSHALL: Not Applicable Instructions: Nonsutured Laceration Care, Self-Harming Behavior Information Forms: ED Department Discharge Care Plan Goals: The patient was advised of the examination and lab results during the visit. The patient visited with a open claims representative from the [facility] [place] and is scheduled to follow-up with the [facility] tomorrow. The patient was discharged with a script for Keflex (500 mg) #20 to take 1 by mouth 2 times per day for 10 days. If the patient has any additional symptoms or concerns, the patient should either return to the emergency department or visit her primary care facility. Sepsis Event Note (ED) - Evaluation Sepsis Screening Result: No Definite Risk - Focused Exam Vital Signs: Vital Signs Temp Pulse Resp BP Pulse Ox 03/02/20 18:27 36.8 C 107 H 18 89/64 L 100
[2020-03-02] MEDS ORDERED: Bacitracin Oint 1 GM U/D Packet TOP ONE (20:41)
== END 2020-03-02 20:53 | disposition home or self-care (01) ==
LOC: DL.ED 18:26
DX: S61.512A Laceration without foreign body of left wrist, initial encounter (principal); F17.210 Nicotine dependence, cigarettes, uncomplicated; Y28.9XXA Contact with unspecified sharp object, undetermined intent, initial encounter
CPT/HCPCS: 36415; 80053; 80305; 80307; 81001; 81025; 85025; 99284; A9270; 99283

== ENCOUNTER 2020-09-13 10:41 | Emergency (ER) | payer MEDICAID, OTHER ==
--- NOTE | 2020-09-13 11:26 | EDM.PDOC ---
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 The patient reports her symptoms began this morning. She does not have pads at home, but notes large volumes of blood with quarter size clots in the toilet and on her clothing this morning. She denies recent illness, fever, shaking chills, palpitations, nausea, vomiting, diarrhea, dysuria, hematuria, or rough/recent intercourse. She has had her first appointment with Dr. Geronimo and is currently at 12 + 4 weeks gestation with a due date of 03/24/2021. She denies tobacco and alcohol use; she does attest to utilizing cannabis recreationally. 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 ED EXAM - Physical Exam Exam: See Below Exam Limited By: No Limitations General Appearance: Alert, No Apparent Distress, Thin. No: Active Emesis Eye Exam: Bilateral Eye: EOMI, Normal Inspection, PERRL (3mm) Ears: Normal External Exam, Hearing Grossly Normal Nose: Normal Inspection, Normal Mucosa, No Blood Throat/Mouth: Normal Inspection, Normal Oropharynx, Normal Voice, No Airway Compromise Head: Atraumatic, Normocephalic Neck: Normal Inspection, Supple, Non-Tender, Full Range of Motion Respiratory/Chest: No Respiratory Distress, Lungs Clear, Normal Breath Sounds, No Accessory Muscle Use, Chest Non-Tender Cardiovascular: Normal Peripheral Pulses, Regular Rate, Rhythm, No Edema, No Gallop, No JVD, No Murmur, No Rub GI/Abdominal Exam: Soft, No Distention, No Abnormal Bruit, No Mass, Pelvis Stable, Abnormal Bowel Sounds (Hyperactivity ) Rectal Exam: Deferred (Female) Exam: Normal External Exam, Cervical Discharge (Bloody discharge), Cervical Fluid (Clear fluid), Vaginal Bleeding. No: Adnexal Tenderness, Cervical Dilatation, Uterine Tenderness, Vaginal Discharge, Vaginal Lesions, Vaginal Tears Back Exam: Normal Inspection, Full Range of Motion. No: CVA Tenderness (L), CVA Tenderness (R) Extremities: Normal Inspection, Normal Range of Motion, Non-Tender, No Pedal Edema, Normal Capillary Refill Neurological: Alert, Oriented, CN II-XII Intact, Normal Cognition, Normal Gait, No Motor/Sensory Deficits Psychiatric: Normal Affect, Normal Mood Skin Exam: Warm, Dry, Intact, Normal Color, No Rash. No: Cyanosis, Jaundice, Mottled, Pallor Course - Vital Signs Last Recorded V/S: Last Vital Signs Temp 98 F 09/13/20 11:17 Pulse 93 09/13/20 11:17 Resp 16 09/13/20 11:17 BP 115/65 09/13/20 11:17 Pulse Ox 100 09/13/20 11:17 - Orders/Labs/Meds Orders: Active Orders 24 hr Category Date Time Status CULTURE URINE [RM] Stat Lab 09/13/20 10:58 Results Labs: Laboratory Tests 09/13/20 09/13/20 09/13/20 Range/Units 10:58 10:58 11:19 WBC 8.1 (5.0-10.0) 10^3/uL RBC 4.05 L (4.2-5.4) 10^6/uL Hgb 12.5 (12.0-16.0) g/dL Hct 38.1 (37.0-47.0) % MCV 94.1 (80-100) fL MCH 30.9 (27.0-34.0) pg MCHC 32.8 L (33.0-35.0) g/dL Plt Count 259 (150-450) 10^3/uL Neut % (Auto) 72.0 (42.2-75.2) % Lymph % (Auto) 18.7 L (20.5-50.1) % [place] % (Auto) 7.8 (2-8) % Eos % (Auto) 1.4 (1.0-3.0) % Baso % (Auto) 0.1 (0.0-1.0) % Sodium (136-145) mmol/L Potassium (3.5-5.1) mmol/L Chloride (98-107) mmol/L Carbon Dioxide (21-32) mmol/L Anion Gap (7-13) mEq/L BUN (7-18) mg/dL Creatinine (0.55-1.02) mg/dL Est Cr Clr Drug Dosing mL/min Estimated GFR (MDRD) BUN/Creatinine Ratio (No establ ref range) Glucose (70-99) mg/dL Calcium (8.5-10.1) mg/dL Total Bilirubin (0.2-1.0) mg/dL AST (15-37) U/L ALT (14-59) U/L Alkaline Phosphatase (46-116) U/L Total Protein (6.4-8.2) g/dL Albumin (3.4-5.0) g/dL Globulin Albumin/Globulin Ratio HCG, Quant (0-6) mIU/mL Urine Color Yellow (YELLOW) Urine Appearance Cloudy (CLEAR) Urine pH 7.0 (5.0-9.0) Ur Specific [place] >= 1.030 (1.005-1.030) Urine Protein Negative (NEGATIVE) Urine Glucose (UA) Negative (NEGATIVE) Urine Ketones Negative (NEGATIVE) Urine Occult Blood Moderate H (NEGATIVE) Urine Nitrite Negative (NEGATIVE) Urine Bilirubin Negative (NEGATIVE) Urine Urobilinogen 0.2 (0.2-1.0) mg/dL Ur Leukocyte Esterase Trace H (NEGATIVE) Urine RBC 5-10 H /HPF Urine WBC 0-5 (0-5/HPF) /HPF Ur Epithelial Cells Moderate H (NOT SEEN) /HPF Amorphous Sediment Many H (NOT SEEN) /HPF Urine Bacteria Moderate H (0-FEW/HPF) /HPF Urine Trichomonas Present H (NOT SEEN) /HPF Urine Opiates Screen Negative (NEGATIVE) Ur Oxycodone Screen Negative (NEGATIVE) Urine Methadone Screen Negative (NEGATIVE) Ur Barbiturates Screen Negative (NEGATIVE) U Tricyclic Antidepress Negative (NEGATIVE) Ur Phencyclidine Scrn Negative (NEGATIVE) Ur Amphetamine Screen Negative (NEGATIVE) U Methamphetamines Scrn Negative (NEGATIVE) Urine MDMA Screen Negative (NEGATIVE) U Benzodiazepines Scrn Negative (NEGATIVE) Urine Cocaine Screen Negative (NEGATIVE) U Marijuana (THC) Screen Positive H (NEGATIVE) Ethyl Alcohol (0) mg/dL 09/13/20 09/13/20 Range/Units 11:19 11:19 WBC (5.0-10.0) 10^3/uL RBC (4.2-5.4) 10^6/uL Hgb (12.0-16.0) g/dL Hct (37.0-47.0) % MCV (80-100) fL MCH (27.0-34.0) pg MCHC (33.0-35.0) g/dL Plt Count (150-450) 10^3/uL Neut % (Auto) (42.2-75.2) % Lymph % (Auto) (20.5-50.1) % [place] % (Auto) (2-8) % Eos % (Auto) (1.0-3.0) % Baso % (Auto) (0.0-1.0) % Sodium 144 (136-145) mmol/L Potassium 4.2 (3.5-5.1) mmol/L Chloride 109 H (98-107) mmol/L Carbon Dioxide 27 (21-32) mmol/L Anion Gap 12.2 (7-13) mEq/L BUN 11 (7-18) mg/dL Creatinine 0.60 (0.55-1.02) mg/dL Est Cr Clr Drug Dosing 121.66 mL/min Estimated GFR (MDRD) > 60 BUN/Creatinine Ratio 18.3 (No establ ref range) Glucose 84 (70-99) mg/dL Calcium 8.4 L (8.5-10.1) mg/dL Total Bilirubin 0.3 (0.2-1.0) mg/dL AST 13 L (15-37) U/L ALT 22 (14-59) U/L Alkaline Phosphatase 76 (46-116) U/L Total Protein 6.4 (6.4-8.2) g/dL Albumin 3.3 L (3.4-5.0) g/dL Globulin 3.1 Albumin/Globulin Ratio 1.06 HCG, Quant 3668 H (0-6) mIU/mL Urine Color (YELLOW) Urine Appearance (CLEAR) Urine pH (5.0-9.0) Ur Specific [place] (1.005-1.030) Urine Protein (NEGATIVE) Urine Glucose (UA) (NEGATIVE) Urine Ketones (NEGATIVE) Urine Occult Blood (NEGATIVE) Urine Nitrite (NEGATIVE) Urine Bilirubin (NEGATIVE) Urine Urobilinogen (0.2-1.0) mg/dL Ur Leukocyte Esterase (NEGATIVE) Urine RBC /HPF Urine WBC (0-5/HPF) /HPF Ur Epithelial Cells (NOT SEEN) /HPF Amorphous Sediment (NOT SEEN) /HPF Urine Bacteria (0-FEW/HPF) /HPF Urine Trichomonas (NOT SEEN) /HPF Urine Opiates Screen (NEGATIVE) Ur Oxycodone Screen (NEGATIVE) Urine Methadone Screen (NEGATIVE) Ur Barbiturates Screen (NEGATIVE) U Tricyclic Antidepress (NEGATIVE) Ur Phencyclidine Scrn (NEGATIVE) Ur Amphetamine Screen (NEGATIVE) U Methamphetamines Scrn (NEGATIVE) Urine MDMA Screen (NEGATIVE) U Benzodiazepines Scrn (NEGATIVE) Urine Cocaine Screen (NEGATIVE) U Marijuana (THC) Screen (NEGATIVE) Ethyl Alcohol < 3 (0) mg/dL Meds: Medications Discontinued Medications Generic Name Dose Route Start Last Admin Trade Name Freq PRN Reason Stop Dose Admin Metronidazole 500 mg 09/13/20 14:05 09/13/20 14:10 Metronidazole 250 Mg Tab PO 09/13/20 14:06 500 mg ONETIME ONE Administration Misoprostol 600 mcg 09/13/20 13:46 09/13/20 14:10 Misoprostol 100 Mcg Tab PO 09/13/20 13:47 600 mcg ONETIME ONE Administration Misoprostol Confirm 09/13/20 13:59 09/13/20 14:11 Misoprostol 400 Mcg (4 X 100 Mcg Tab) Administered 09/13/20 14:00 Not Given Dose 400 mcg .ROUTE .STK-MED ONE - Radiology Interpretation Free Text/Narrative:: [facility] Final Radiology Report with Addendum Call: [phone] assistance Online chat: [email or web address] Name: SANIA SHEFFIELD Age: 20Years F Date: 09/13/2020 SSN: -- : 2000 Study: US OB 1ST TRI SGL 1ST GEST Requesting Physician: Fabi Farias Images: 21 Addl Studies: Provided Clinical History: Vaginal bleeding and cramping x1 day Contrast: Without Contrast Medium: Contrast Amount: Contrast Method: Page 1 of 2 Addendum created by Mckayla Hair MD on 09/13/2020 1:14 PM Central Time ( & Carleen): THIS REPORT CONTAINS FINDINGS THAT MAY BE CRITICAL TO PATIENT CARE. The findings were verbally communicated via telephone conference with Fabi Farias at 1: 13 PM CDT on 09/13/2020. The findings were acknowledged and understood. Initial Report created on 09/13/2020 1:13 PM Central Time ( & Carleen): PROCEDURE INFORMATION: Exam: US First Trimester, Transabdominal Exam date and time: 09/13/2020 11:49 AM Age: 20 years old Clinical indication: Lmp or gestational age (in weeks): 12w4d; Antepartum complications; Bleeding; ; Additional info: Vaginal bleeding and cramping x1 day TECHNIQUE: Imaging protocol: Real-time transabdominal obstetrical ultrasound of the maternal pelvis and a first trimester , less than 14 weeks 0 days, with image documentation. COMPARISON: No relevant prior studies available. FINDINGS: Gestation: A gestational sac containing an embryo is identified with a crown- rump length consistent with an age of 9 weeks and 3 days. No heart tones are identified. Embryonic/ heart rate: Nondetected MATERNAL: Uterus: Unremarkable. Cervix: Unremarkable. Right adnexa: Unremarkable. Left adnexa: Unremarkable. Intraperitoneal space: No intraperitoneal free fluid. IMPRESSION: Failed 1st trimester Thank you for allowing us to participate in the care of your patient. Dictated and Authenticated by: Mckayla Hair MD 09/13/2020 1:13 PM Central Time ( & Carleen) - Re-Assessments/Exams Free Text/Narrative Re-Assessment/Exam: 09/13/20 OB US obtained. OB US resulted as failed first trimester . Case discussed with Dr. Monet, on-call OB physician, who kindly assisted with plan of care. Will administer Cytotec 600mcg PO. Findings of examination, lab work, imaging, and conversation with Dr. Monet reviewed with patient. Reviewed normal side effects of medication with patient, as well as red flag signs and symptoms which would warrant reevaluation. Discussed treatment from Trichomoniasis. Patient instructed to follow up with Dr. Geronimo in 5-7 days, or earlier as warranted. Patient verbalized understanding and agreement with the plan of care. Departure - Departure Time of Disposition: 13:54 Disposition: Home, Self-Care 01 Condition: Fair Clinical Impression: Spontaneous in first trimester, Incomplete , Trichomoniasis - Discharge Information *PRESCRIPTION DRUG MONITORING PROGRAM REVIEWED*: Not Applicable *COPY OF PRESCRIPTION DRUG MONITORING REPORT IN PATIENT MARSHALL: Not Applicable Instructions: Miscarriage, [id number], Incomplete Miscarriage, Trichomoniasis Referrals: Siva Geronimo MD [Primary Care Provider] - Forms: ED Department Discharge Additional Instructions: Rx: metronidazole 1.) Expect significant abdominal cramping and heavy bleeding. 2.) You may take ibuprofen (Advil/Motrin) 400mg every six hours, as pain persists. You may also take acetaminophen (Tylenol) 1000mg every six hours, as pain persists. You may stagger these medications so you are receiving a dose every three hours. 3.) Follow up with Dr. Geronimo in 5-7 days. 4.) Follow up with Dr. Geronimo sooner, or return to the emergency department, with any significant bleeding that does not stop, lightheadedness, severe pain, or inability to complete this process at home. Sepsis Event Note (ED) - Evaluation Sepsis Screening Result: No Definite Risk - My Orders Last 24 Hours: My Active Orders 09/13/20 10:58 CULTURE URINE [RM] Stat - Assessment/Plan Last 24 Hours: My Active Orders 09/13/20 10:58 CULTURE URINE [RM] Stat
[2020-09-13 11:50] LABS: ANION GAP 12.2 mEq/L (7-13); CHLORIDE,CL 109 mmol/L (98-107); SODIUM,NA 144 mmol/L (136-145)
--- NOTE | 2020-09-13 13:13 | US ---
PROCEDURE INFORMATION: Exam: US First Trimester, Transabdominal Exam date and time: 09/13/2020 11:49 AM Age: 20 years old Clinical indication: Lmp or gestational age (in weeks): 12w4d; Antepartum complications; Bleeding; ; Additional info: Vaginal bleeding and cramping x1 day TECHNIQUE: Imaging protocol: Real-time transabdominal obstetrical ultrasound of the maternal pelvis and a first trimester , less than 14 weeks 0 days, with image documentation. COMPARISON: No relevant prior studies available. FINDINGS: Gestation: A gestational sac containing an embryo is identified with a crown-rump length consistent with an age of 9 weeks and 3 days. No heart tones are identified. Embryonic/ heart rate: Nondetected MATERNAL: Uterus: Unremarkable. Cervix: Unremarkable. Right adnexa: Unremarkable. Left adnexa: Unremarkable. Intraperitoneal space: No intraperitoneal free fluid. IMPRESSION: Failed 1st trimester
[2020-09-13] MEDS ORDERED: Misoprostol 100 MCG Tab PO ONE (13:46)
[2020-09-13] MEDS ORDERED: Misoprostol 400 MCG (4 X 100 MCG TAB) ONE (13:59)
[2020-09-13] MEDS ORDERED: metroNIDAZOLE 250 MG Tab PO ONE (14:05)
== END 2020-09-13 14:13 | disposition home or self-care (01) ==
LOC: DL.ED 10:41
DX: O03.4 Incomplete spontaneous abortion without complication (principal); O23.591 Infection of other part of genital tract in pregnancy, first trimester; A59.9 Trichomoniasis, unspecified
CPT/HCPCS: 36415; 76801; 80053; 80305-QW; 80307; 81001; 84702; 85025; 87086; 99284; 99284-25; A9270-GY

== ENCOUNTER 2020-09-15 14:05 | Emergency (ER) | payer MEDICAID, OTHER ==
[2020-09-15] MEDS ORDERED: Sodium Chloride 0.9% 1,000 ML IV ONE (14:53)
[2020-09-15] MEDS ORDERED: HYDROmorphone 1 MG/ML Syringe IVPUSH ONE ×2 (14:53→15:20)
[2020-09-15] MEDS ORDERED: Ondansetron 4 MG/2 ML SDV IVPUSH ONE (14:54)
--- NOTE | 2020-09-15 14:57 | EDM.PDOC ---
ED HPI GENERAL MEDICAL PROBLEM - General Stated Complaint: ADOMINAL PAIN, MISCARRIAGE. ALOT OF BLOOD CLOUGHTS Time Seen by Provider: 09/15/20 14:54 Source of Information: Reports: Patient, RN Notes Reviewed History Limitations: Reports: No Limitations - History of Present Illness INITIAL COMMENTS - FREE TEXT/NARRATIVE: Sania is a 20 y/o female who presents to the ED via personal vehicle with complaints of vaginal bleeding and pain. The patient was evaluated by this provider two days ago for similar symptoms; she was subsequently diagnosed with spontaneous and was given Cytotec. Today she states the abdominal cramping is too great and she has been feeling lightheaded. She denies loss of consciousness or falls. She attests to passing clots and large volumes of blood. She denies fever, shaking chills, palpitations, nausea, vomiting, or diarrhea. She denies recent rough intercourse. She has not taken any medication for pain. 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 ED EXAM, GENERAL - Physical Exam Exam: See Below Exam Limited By: No Limitations General Appearance: Alert, Moderate Distress (Abdominal pain) Eye Exam: Bilateral Eye: EOMI, Normal Inspection, PERRL (3mm) Ears: Normal External Exam, Hearing Grossly Normal Throat/Mouth: Normal Inspection, Normal Oropharynx, Normal Voice, No Airway Compromise Head: Atraumatic, Normocephalic Neck: Normal Inspection, Supple, Non-Tender, Full Range of Motion Respiratory/Chest: No Respiratory Distress, Lungs Clear, Normal Breath Sounds, No Accessory Muscle Use, Chest Non-Tender Cardiovascular: Normal Peripheral Pulses, Regular Rate, Rhythm, No Edema, No Gallop, No JVD, No Murmur, No Rub Peripheral Pulses: 2+: Radial (L), Radial (R) GI/Abdominal: Soft, No Distention, No Abnormal Bruit, No Mass, Pelvis Stable, Tender (To bilateral lower abdomen), Abnormal Bowel Sounds (Hypoactive bowel sounds) (Female) Exam: Products of Conception, Vaginal Bleeding Rectal (Female) Exam: Deferred Back Exam: Normal Inspection, Full Range of Motion Extremities: Normal Inspection, Normal Range of Motion, Non-Tender, No Pedal Edema, Normal Capillary Refill Neurological: Alert, Oriented, CN II-XII Intact, Normal Cognition, Normal Gait, No Motor/Sensory Deficits Psychiatric: Anxious, Tearful Skin Exam: Warm, Intact, Normal Color, No Rash, Diaphoretic. No: Cyanosis, Ecchymosis, Erythema, Jaundice, Mottled, Pallor, Petechiae Course - Vital Signs Last Recorded V/S: Last Vital Signs Temp 98.7 F 09/15/20 14:54 Pulse 93 09/15/20 14:54 Resp 16 09/15/20 14:54 BP 111/81 09/15/20 14:54 Pulse Ox 99 09/15/20 14:54 - Orders/Labs/Meds Orders: Active Orders 24 hr Category Date Time Status UA RFX IMER AND CULT IF INDIC [URIN] Stat Lab 09/15/20 14:54 Ordered Labs: Laboratory Tests 09/15/20 09/15/20 Range/Units 14:50 14:50 WBC 10.1 H (5.0-10.0) 10^3/uL RBC 4.34 (4.2-5.4) 10^6/uL Hgb 13.2 (12.0-16.0) g/dL Hct 40.0 (37.0-47.0) % MCV 92.2 (80-100) fL MCH 30.4 (27.0-34.0) pg MCHC 33.0 (33.0-35.0) g/dL Plt Count 275 (150-450) 10^3/uL Neut % (Auto) 72.7 (42.2-75.2) % Lymph % (Auto) 18.5 L (20.5-50.1) % [place] % (Auto) 7.5 (2-8) % Eos % (Auto) 1.1 (1.0-3.0) % Baso % (Auto) 0.2 (0.0-1.0) % Sodium 141 (136-145) mmol/L Meds: Medications Discontinued Medications Generic Name Dose Route Start Last Admin Trade Name Jacinto PRN Reason Stop Dose Admin Hydromorphone HCl 0.5 mg 09/15/20 14:53 09/15/20 15:00 Hydromorphone 1 Mg/Ml Syringe IVPUSH 09/15/20 14:54 0.5 mg ONETIME ONE Administration Hydromorphone HCl 0.5 mg 09/15/20 15:20 09/15/20 15:23 Hydromorphone 1 Mg/Ml Syringe IVPUSH 09/15/20 15:21 0.5 mg ONETIME ONE Administration Hydromorphone HCl Confirm 09/15/20 15:21 09/15/20 15:22 Hydromorphone 0.5 Mg/0.5 Ml Syringe Administered 09/15/20 15:22 Not Given Dose 0.5 mg .ROUTE .STK-MED ONE Sodium Chloride 1,000 mls @ 999 mls/hr 09/15/20 14:53 09/15/20 15:03 Normal Saline IV 09/15/20 15:53 Not Given .BOLUS ONE Lactated Ringer's 1,000 mls @ 999 mls/hr 09/15/20 15:00 09/15/20 15:02 Ringers, Lactated IV 09/15/20 16:00 999 mls/hr .BOLUS ONE Administration Ibuprofen 800 mg 09/15/20 16:39 09/15/20 17:51 Ibuprofen 800 Mg Tab PO 09/15/20 16:40 800 mg ONETIME ONE Administration Metoclopramide HCl 10 mg 09/15/20 17:33 09/15/20 17:58 Metoclopramide 10 Mg/2 Ml Sdv IVPUSH 09/15/20 17:34 10 mg ONETIME ONE Administration Ondansetron HCl 4 mg 09/15/20 14:54 09/15/20 15:02 Ondansetron 4 Mg/2 Ml Sdv IVPUSH 09/15/20 14:55 4 mg ONETIME ONE Administration - Re-Assessments/Exams Free Text/Narrative Re-Assessment/Exam: 09/15/20 NS 1L administered while labs pending. Dilaudid 0.5mg administered. Zofran 4mg administered. Findings of examination and lab work reviewed with patient. Will refrain from speculum exam at this time as patient is tender and actively passing blood. Will obtain OB US. Dilaudid 0.5mg administered. Findings of imaging reviewed with patient. Patient states she would like to go home and continue with the plan of care from Monday. Will provide patient with prescription for Zofran due to nausea. Patient instructed to follow up with primary care provider in 2-3 days regarding today's visit. Red flag signs and symptoms which would warrant reevaluation reviewed. Patient verbalized understanding and agreement with the plan of care. Departure - Departure Time of Disposition: 17:26 Disposition: Home, Self-Care 01 Condition: Fair Clinical Impression: Spontaneous , Incomplete - Discharge Information *PRESCRIPTION DRUG MONITORING PROGRAM REVIEWED*: Not Applicable *COPY OF PRESCRIPTION DRUG MONITORING REPORT IN PATIENT MARSHALL: Not Applicable Instructions: Incomplete Miscarriage Referrals: PCP,None [Primary Care Provider] - Forms: ED Department Discharge Additional Instructions: Rx: Zofran ODT 1.) Continue with previous plan regarding miscarriage. 2.) You may take ibuprofen (Advil/Motrin) 400mg every six hours, as pain and swelling persists. You may also take acetaminophen (Tylenol) 650mg every six hours, as pain persists. You may stagger these medications so you are receiving a dose every three hours. 3.) Apply warm packs to the abdomen for comfort; you may also try a hot bath. 4.) Follow up with Dr. Geronimo in 2-3 days, or return to the emergency room should symptoms persist. Sepsis Event Note (ED) - Focused Exam Vital Signs: Vital Signs Temp Pulse Resp BP Pulse Ox 09/15/20 14:54 98.7 F 93 16 111/81 99 - My Orders Last 24 Hours: My Active Orders 09/15/20 14:54 UA RFX IMER AND CULT IF INDIC [URIN] Stat - Assessment/Plan Last 24 Hours: My Active Orders 09/15/20 14:54 UA RFX IMER AND CULT IF INDIC [URIN] Stat
[2020-09-15] MEDS ORDERED: Lactated Ringers 1,000 ML IV ONE (15:00)
[2020-09-15] MEDS ORDERED: HYDROmorphone 0.5 MG/0.5 ML Syringe ONE (15:21)
--- NOTE | 2020-09-15 16:10 | US ---
EXAMINATION: OB Ltd 1 or More Fetus SEX: Female AGE: 20 years CLINICAL HISTORY: 20-year-old female diagnosed with "failed first trimester ( heart rate not detected)" on 13 September 2020. Medication and now in "labor". Interpretation: Midline uterus is enlarged with fluid centrally. Fibrous band and/or residual tissues in the endometrial canal. No pole but there appears to be small fluid collection (subchorionic bleed?) immediately adjacent to the sac which measures 16 mm diameter. No adnexal mass lesion.
[2020-09-15] MEDS ORDERED: Ibuprofen 800 MG Tab PO ONE (16:39)
[2020-09-15] MEDS ORDERED: Metoclopramide 10 MG/2 ML SDV IVPUSH ONE (17:33)
[2020-09-15 18:03] LABS: SODIUM,NA 141 mmol/L (136-145)
== END 2020-09-15 18:15 | disposition home or self-care (01) ==
LOC: DL.ED 14:05
DX: O03.4 Incomplete spontaneous abortion without complication (principal)
CPT/HCPCS: 36415; 76815; 80053; 85025; 96374; 96375; 99283; 99284-25; A9270-GY; J1170; J2405; J2765; J7120

== ENCOUNTER 2020-11-11 15:45 | Emergency (ER) | payer MEDICAID, OTHER ==
[2020-11-11] MEDS: Ondansetron 4 MG Tab.DIS PO ONE (16:16)
--- NOTE | 2020-11-11 16:20 | EDM.PDOC ---
ED HPI GENERAL MEDICAL PROBLEM - General Chief Complaint: Abdominal Pain Stated Complaint: VOMITING ALL DAY Time Seen by Provider: 11/11/20 16:15 Source of Information: Reports: Patient, RN, RN Notes Reviewed History Limitations: Reports: No Limitations - History of Present Illness INITIAL COMMENTS - FREE TEXT/NARRATIVE: Sania is a 20 y/o female with a history of anemia who presents to the ED via personal vehicle with complaints of nausea and vomiting. The patient states her nausea began this morning with vomiting following shortly thereafter; she has experienced three bouts of emesis throughout the day. Her last meal was breakfast. She is currently on her menses; she denies nausea as normal for her with menstruation. She denies fever, shaking chills, headache, vision changes, abdominal pain, dysuria, diarrhea, or constipation. The patient does attest to transient chest pain and lightheadedness, which she feels is related to anxiety. 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: Reports: Musculoskeletal History: Reports: None Neurological History: Reports: None Psychiatric History: Reports: ADHD, Addiction, Anxiety, Depression Other Psychiatric History: Hx of cutting, patient says that was a few years ago and is in a much better place at this time Endocrine/Metabolic History: Reports: None Hematologic History: Reports: Anemia Immunologic History: Reports: None Oncologic (Cancer) History: Reports: None Dermatologic History: Reports: None - Infectious Disease History Infectious Disease History: Reports: None - Past Surgical History Head Surgeries/Procedures: Reports: None Social & Family History - Family History Family Medical History: No Pertinent Family History - Tobacco Use Tobacco Use Status *Q: Current Every Day Tobacco User Years of Tobacco use: 7 Packs/Tins Daily: 1 - Caffeine Use Caffeine Use: Reports: None - Recreational Drug Use Recreational Drug Use: Yes Recreational Drug Type: Reports: Methamphetamine ED ROS GENERAL - Review of Systems Review Of Systems: Comprehensive ROS is negative, except as noted in HPI. ED EXAM, GI/ABD - Physical Exam Exam: See Below Exam Limited By: No Limitations General Appearance: Alert, No Apparent Distress, Thin. No: Active Emesis Eyes: Bilateral: Normal Appearance, EOMI Ears: Normal External Exam, Hearing Grossly Normal Nose: Normal Inspection, Normal Mucosa, No Blood Throat/Mouth: Normal Inspection, Normal Oropharynx, Normal Voice, No Airway Compromise Head: Atraumatic, Normocephalic Neck: Normal Inspection, Supple, Non-Tender, Full Range of Motion. No: Lymphadenopathy (L), Lymphadenopathy (R) Respiratory/Chest: No Respiratory Distress, Lungs Clear, Normal Breath Sounds, No Accessory Muscle Use, Chest Non-Tender Cardiovascular: Normal Peripheral Pulses, Regular Rate, Rhythm, No Edema, No Gallop, No JVD, No Murmur, No Rub GI/Abdominal Exam: Soft, Non-Tender, No Distention, No Abnormal Bruit, No Mass, Pelvis Stable, Abnormal Bowel Sounds (Hypoactive). No: Guarding, Rigid, Rebound, Hernia (Female) Exam: Deferred Rectal (Female) Exam: Deferred Back Exam: Normal Inspection, Full Range of Motion. No: CVA Tenderness (L), CVA Tenderness (R) Extremities: Normal Inspection, Normal Range of Motion, Non-Tender, No Pedal Edema, Normal Capillary Refill Neurological: Alert, Oriented, CN II-XII Intact, Normal Cognition, Normal Gait, Normal Reflexes, No Motor/Sensory Deficits Psychiatric: Normal Mood, Flat Affect Skin Exam: Warm, Dry, Intact, Normal Color, No Rash. No: Cyanosis, Diaphoretic, Jaundice, Mottled, Pallor Lymphatic: No Adenopathy #1 Interpretation EKG Date: 11/11/20 Time: 16:19 Rhythm: NSR Rate (Beats/Min): 83 Alfred: Normal P-Wave: Present QRS: Normal ST-T: Normal QT: Normal LA/PQ Interval: 0.141 Comparison: No Change EKG Interpretation Comments: NSR; No evidence of acute myocardial ischemia Course - Vital Signs Last Recorded V/S: Last Vital Signs Temp 96.3 F L 11/11/20 16:04 Pulse 92 11/11/20 16:04 Resp 16 11/11/20 16:04 BP 127/77 11/11/20 16:04 Pulse Ox 100 11/11/20 16:04 - Orders/Labs/Meds Labs: Laboratory Tests 11/11/20 11/11/20 11/11/20 Range/Units 16:08 16:08 16:08 WBC (5.0-10.0) 10^3/uL RBC (4.2-5.4) 10^6/uL Hgb (12.0-16.0) g/dL Hct (37.0-47.0) % MCV (80-100) fL MCH (27.0-34.0) pg MCHC (33.0-35.0) g/dL Plt Count (150-450) 10^3/uL Neut % (Auto) (42.2-75.2) % Lymph % (Auto) (20.5-50.1) % Aiken % (Auto) (2-8) % Eos % (Auto) (1.0-3.0) % Baso % (Auto) (0.0-1.0) % Sodium (136-145) mmol/L Potassium (3.5-5.1) mmol/L Chloride (98-107) mmol/L Carbon Dioxide (21-32) mmol/L Anion Gap (7-13) mEq/L BUN (7-18) mg/dL Creatinine (0.55-1.02) mg/dL Est Cr Clr Drug Dosing mL/min Estimated GFR (MDRD) BUN/Creatinine Ratio (No establ ref range) Glucose (70-99) mg/dL Calcium (8.5-10.1) mg/dL Magnesium (1.8-2.4) mg/dL Total Bilirubin (0.2-1.0) mg/dL AST (15-37) U/L ALT (14-59) U/L Alkaline Phosphatase (46-116) U/L Troponin I High Sens (<=51) pg/mL C-Reactive Protein (0.0-0.9) mg/dL Total Protein (6.4-8.2) g/dL Albumin (3.4-5.0) g/dL Globulin Albumin/Globulin Ratio Urine Color Yellow (YELLOW) Urine Appearance Slightly cloudy (CLEAR) Urine pH 7.0 (5.0-9.0) Ur Specific [place] >= 1.030 (1.005-1.030) Urine Protein 100 H (NEGATIVE) Urine Glucose (UA) Negative (NEGATIVE) Urine Ketones Trace H (NEGATIVE) Urine Occult Blood Large H (NEGATIVE) Urine Nitrite Negative (NEGATIVE) Urine Bilirubin Negative (NEGATIVE) Urine Urobilinogen 0.2 (0.2-1.0) mg/dL Ur Leukocyte Esterase Trace H (NEGATIVE) Urine RBC 20-30 H (0-5) /HPF Urine WBC 10-20 H (0-5/HPF) /HPF Ur Epithelial Cells Few (NOT SEEN) /HPF Amorphous Sediment Few (NOT SEEN) /HPF Urine Bacteria Few (0-FEW/HPF) /HPF Urine Mucus Few H (NOT SEEN) /LPF Urine HCG, Qual Negative Urine Opiates Screen Negative (NEGATIVE) Ur Oxycodone Screen Negative (NEGATIVE) Urine Methadone Screen Negative (NEGATIVE) Ur Barbiturates Screen Negative (NEGATIVE) U Tricyclic Antidepress Negative (NEGATIVE) Ur Phencyclidine Scrn Negative (NEGATIVE) Ur Amphetamine Screen Positive H (NEGATIVE) U Methamphetamines Scrn Positive H (NEGATIVE) Urine MDMA Screen Negative (NEGATIVE) U Benzodiazepines Scrn Negative (NEGATIVE) Urine Cocaine Screen Negative (NEGATIVE) U Marijuana (THC) Screen Negative (NEGATIVE) Ethyl Alcohol (0) mg/dL 11/11/20 11/11/20 Range/Units 16:22 16:22 WBC 7.6 (5.0-10.0) 10^3/uL RBC 4.31 (4.2-5.4) 10^6/uL Hgb 12.0 (12.0-16.0) g/dL Hct 38.0 (37.0-47.0) % MCV 88.2 D (80-100) fL MCH 27.8 (27.0-34.0) pg MCHC 31.6 L (33.0-35.0) g/dL Plt Count 307 (150-450) 10^3/uL Neut % (Auto) 73.7 (42.2-75.2) % Lymph % (Auto) 17.8 L (20.5-50.1) % Aiken % (Auto) 7.4 (2-8) % Eos % (Auto) 0.8 L (1.0-3.0) % Baso % (Auto) 0.3 (0.0-1.0) % Sodium 143 (136-145) mmol/L Potassium 3.6 (3.5-5.1) mmol/L Chloride 104 (98-107) mmol/L Carbon Dioxide 28 (21-32) mmol/L Anion Gap 14.6 H (7-13) mEq/L BUN 9 (7-18) mg/dL Creatinine 0.63 (0.55-1.02) mg/dL Est Cr Clr Drug Dosing 110.78 mL/min Estimated GFR (MDRD) > 60 BUN/Creatinine Ratio 14.3 (No establ ref range) Glucose 109 H (70-99) mg/dL Calcium 8.5 (8.5-10.1) mg/dL Magnesium 2.0 (1.8-2.4) mg/dL Total Bilirubin 0.6 (0.2-1.0) mg/dL AST 16 (15-37) U/L ALT 31 (14-59) U/L Alkaline Phosphatase 73 (46-116) U/L Troponin I High Sens < 4 (<=51) pg/mL C-Reactive Protein < 0.2 (0.0-0.9) mg/dL Total Protein 7.1 (6.4-8.2) g/dL Albumin 3.8 (3.4-5.0) g/dL Globulin 3.3 Albumin/Globulin Ratio 1.2 Urine Color (YELLOW) Urine Appearance (CLEAR) Urine pH (5.0-9.0) Ur Specific [place] (1.005-1.030) Urine Protein (NEGATIVE) Urine Glucose (UA) (NEGATIVE) Urine Ketones (NEGATIVE) Urine Occult Blood (NEGATIVE) Urine Nitrite (NEGATIVE) Urine Bilirubin (NEGATIVE) Urine Urobilinogen (0.2-1.0) mg/dL Ur Leukocyte Esterase (NEGATIVE) Urine RBC (0-5) /HPF Urine WBC (0-5/HPF) /HPF Ur Epithelial Cells (NOT SEEN) /HPF Amorphous Sediment (NOT SEEN) /HPF Urine Bacteria (0-FEW/HPF) /HPF Urine Mucus (NOT SEEN) /LPF Urine HCG, Qual Urine Opiates Screen (NEGATIVE) Ur Oxycodone Screen (NEGATIVE) Urine Methadone Screen (NEGATIVE) Ur Barbiturates Screen (NEGATIVE) U Tricyclic Antidepress (NEGATIVE) Ur Phencyclidine Scrn (NEGATIVE) Ur Amphetamine Screen (NEGATIVE) U Methamphetamines Scrn (NEGATIVE) Urine MDMA Screen (NEGATIVE) U Benzodiazepines Scrn (NEGATIVE) Urine Cocaine Screen (NEGATIVE) U Marijuana (THC) Screen (NEGATIVE) Ethyl Alcohol < 3 (0) mg/dL Meds: Medications Discontinued Medications Generic Name Dose Route Start Last Admin Trade Name Jacinto PRN Reason Stop Dose Admin Ondansetron HCl 4 mg 11/11/20 16:10 11/11/20 16:16 Ondansetron 4 Mg Tab.Dis PO 11/11/20 16:11 4 mg ONETIME ONE Administration - Re-Assessments/Exams Free Text/Narrative Re-Assessment/Exam: 11/11/20 Zofran 4mg IVP administered for nausea. Patient verbalized improvement in symptoms following medication administration. Given lack of pain or evidence for infectious process, will refrain from CT at this time. Findings of examination and lab work reviewed with patient. Discussed supportive cares for nausea. Red flag signs and symptoms which would warrant reevaluation reviewed. Patient verbalized understanding and agreement with the plan of care. Departure - Departure Time of Disposition: 17:07 Disposition: Home, Self-Care 01 Condition: Good Clinical Impression: Methamphetamine use Nausea and vomiting Qualifiers: Vomiting type: unspecified Vomiting Intractability: non-intractable Qualified Code(s): R11.2 - Nausea with vomiting, unspecified - Discharge Information *PRESCRIPTION DRUG MONITORING PROGRAM REVIEWED*: Not Applicable *COPY OF PRESCRIPTION DRUG MONITORING REPORT IN PATIENT [facility]SH[facility]: Not Applicable Instructions: Nausea and Vomiting, Adult, [id number] Referrals: PCP,None [Primary Care Provider] - Forms: ED Department Discharge Additional Instructions: 1.) Drink small sips of water and fluids to stay hydrated and avoid nausea. 2.) Eat a bland, easily digestible diet including applesauce, toast, cracker, etc... Avoid spicy, greasy, high-fat foods. 3.) Refrain from using recreational drugs. 4.) Follow up with your primary care provider, or return to the emergency department with any persistent or worsening symptoms.
[2020-11-11 16:46] LABS: METHAMPHETAMINES,URINE POSITIVE (NEGATIVE)
[2020-11-11 16:47] LABS: AMPHETAMINES,URINE POSITIVE (NEGATIVE); BARBITURATES,URINE NEGATIVE (NEGATIVE); BENZODIAZEPINE,URINE NEGATIVE (NEGATIVE); MDMA (ECSTASY), URINE NEGATIVE (NEGATIVE); METHADONE,URINE NEGATIVE (NEGATIVE); OPIATES,URINE NEGATIVE (NEGATIVE); OXYCODONE,URINE NEGATIVE (NEGATIVE); PHENCYCLIDINE,URINE NEGATIVE (NEGATIVE); TCA,URINE NEGATIVE (NEGATIVE)
[2020-11-11 16:49] LABS: ANION GAP 14.6 mEq/L (7-13); CHLORIDE,CL 104 mmol/L (98-107); SODIUM,NA 143 mmol/L (136-145)
== END 2020-11-11 17:20 | disposition home or self-care (01) ==
LOC: DL.ED 15:45
DX: R11.2 Nausea with vomiting, unspecified (principal); F15.90 Other stimulant use, unspecified, uncomplicated; Z72.0 Tobacco use
CPT/HCPCS: 36415; 80053; 80305; 80307; 81001; 81025; 83735; 84484; 85025; 86140; 87086; 93005; 99283; 99284; A9270

== ENCOUNTER 2020-12-05 11:59 | Emergency (ER) | payer MEDICAID ==
[2020-12-05 13:21] LABS: ANION GAP 11.9 mEq/L (7-13); CHLORIDE,CL 105 mmol/L (98-107); SODIUM,NA 142 mmol/L (136-145)
[2020-12-05 13:30] LABS: AMPHETAMINES,URINE POSITIVE (NEGATIVE); BARBITURATES,URINE NEGATIVE (NEGATIVE); BENZODIAZEPINE,URINE NEGATIVE (NEGATIVE); MDMA (ECSTASY), URINE POSITIVE (NEGATIVE); METHADONE,URINE NEGATIVE (NEGATIVE); METHAMPHETAMINES,URINE POSITIVE (NEGATIVE); OPIATES,URINE NEGATIVE (NEGATIVE); OXYCODONE,URINE NEGATIVE (NEGATIVE); PHENCYCLIDINE,URINE NEGATIVE (NEGATIVE); TCA,URINE NEGATIVE (NEGATIVE)
--- NOTE | 2020-12-05 13:39 | EDM.PDOC ---
ED HPI GENERAL MEDICAL PROBLEM - General Chief Complaint: Flank Pain Stated Complaint: RIB PAIN Time Seen by Provider: 12/05/20 12:30 Source of Information: Reports: Patient, RN, RN Notes Reviewed History Limitations: Reports: No Limitations - History of Present Illness INITIAL COMMENTS - FREE TEXT/NARRATIVE: Sania is a 20 y/o female who presents to the ED via personal vehicle with complaints of right lateral rib pain that radiates into her chest and right flank. The patient reports her symptoms began approximately two weeks ago and have waxed an waned in severity over that time. She characterizes the pain as sharp and causes twitching in her muscles. She notes the pain inhibits her ability to take a deep breath, at times. The patient notes she has a history of depression and anxiety and has been off of her medication for some time, she is unsure if her symptoms are anxiety related. She denies recent illness, fever, shaking chills, cough, sore throat, palpitations, nausea, vomiting, abdominal pain, hematuria, diarrhea, or constipation. She notes transient dysuria. She is currently on her menses. The patient attest to injecting methamphetamines four days ago and smokes a 1/4 pack of cigarettes per day; she denies alcohol use. thoracic Pain Score (Numeric/FACES): 8 - Related Data Allergies Allergy/AdvReac Type Severity Reaction Status Date / Time No Known Allergies Allergy Verified 12/05/20 12:24 Home Meds: Home Meds . [Unable to Verify Home Med List] 12/05/20 [History] Past Medical History - Past Health History Medical/Surgical History: Denies Medical/Surgical History HEENT History: Reports: None Cardiovascular History: Reports: None Respiratory History: Reports: None Gastrointestinal History: Reports: None Genitourinary History: Reports: [employer]IVE AIDE History: Reports: , Spontaneous Musculoskeletal History: Reports: None Neurological History: Reports: None Psychiatric History: Reports: ADHD, Addiction, Anxiety, Depression Other Psychiatric History: Hx of cutting, patient says that was a few years ago and is in a much better place at this time Endocrine/Metabolic History: Reports: None Hematologic History: Reports: Anemia Immunologic History: Reports: None Oncologic (Cancer) History: Reports: None Dermatologic History: Reports: None - Infectious Disease History Infectious Disease History: Reports: None - Past Surgical History Head Surgeries/Procedures: Reports: None Social & Family History - Family History Family Medical History: No Pertinent Family History - Tobacco Use Tobacco Use Status *Q: Current Every Day Tobacco User Years of Tobacco use: 7 Packs/Tins Daily: 0.5 - Caffeine Use Caffeine Use: Reports: Soda - Recreational Drug Use Recreational Drug Use: Yes Recreational Drug Type: Reports: Marijuana/Hashish, Methamphetamine Recreational Drug Last Use: 4 days ago ED ROS GENERAL - Review of Systems Review Of Systems: Comprehensive ROS is negative, except as noted in HPI. ED EXAM, GI/ABD - Physical Exam Exam: See Below Exam Limited By: No Limitations General Appearance: Alert, No Apparent Distress, Thin Eyes: Bilateral: Normal Appearance, EOMI Ears: Normal External Exam, Normal Canal, Hearing Grossly Normal, Normal TMs Nose: Normal Inspection, Normal Mucosa Throat/Mouth: Normal Inspection, Normal Oropharynx, Normal Voice, No Airway Compromise Head: Atraumatic, Normocephalic Neck: Normal Inspection, Supple, Non-Tender, Full Range of Motion Respiratory/Chest: No Respiratory Distress, Lungs Clear, Normal Breath Sounds, N o Accessory Muscle Use. No: Crackles, Rales, Rhonchi, Wheezing, Stridor, Retractions Cardiovascular: Normal Peripheral Pulses, Regular Rate, Rhythm, No Edema, No Gallop, No JVD, No Murmur, No Rub, Tachycardia GI/Abdominal Exam: Soft, No Distention, No Abnormal Bruit, No Mass, Pelvis Stable, Tender (To palpation of bilateral upper quadrants), Abnormal Bowel Sounds (Hypoactive bowel sounds). No: Guarding, Rigid, Rebound (Female) Exam: Deferred Rectal (Female) Exam: Deferred Back Exam: Normal Inspection, Full Range of Motion. No: CVA Tenderness (L), CVA Tenderness (R) Extremities: Normal Inspection, Normal Range of Motion, Normal Capillary Refill Neurological: Alert, Oriented, CN II-XII Intact, Normal Cognition, Normal Gait, No Motor/Sensory Deficits Psychiatric: Normal Affect, Normal Mood Skin Exam: Warm, Dry, Intact, Normal Color, No Rash. No: Cyanosis, Jaundice, Mottled, Pallor Lymphatic: No Adenopathy #1 Interpretation EKG Date: 12/05/20 Time: 13:14 Rhythm: NSR Rate (Beats/Min): 93 [place]: Normal P-Wave: Present QRS: Normal ST-T: Normal QT: Normal DC/PQ Interval: 0.134 Comparison: No Change EKG Interpretation Comments: NSR; No evidence of acute myocardial ischemia Course - Vital Signs Last Recorded V/S: Last Vital Signs Temp 98.5 F 12/05/20 13:35 Pulse 93 12/05/20 13:35 Resp 16 12/05/20 13:35 BP 109/76 12/05/20 13:35 Pulse Ox 100 12/05/20 13:35 - Orders/Labs/Meds Labs: Laboratory Tests 12/05/20 12/05/20 12/05/20 Range/Units 12:45 12:45 12:45 WBC 5.7 (5.0-10.0) 10^3/uL RBC 4.44 (4.2-5.4) 10^6/uL Hgb 12.3 (12.0-16.0) g/dL Hct 38.9 (37.0-47.0) % MCV 87.6 (80-100) fL MCH 27.7 (27.0-34.0) pg MCHC 31.6 L (33.0-35.0) g/dL Plt Count 306 (150-450) 10^3/uL Neut % (Auto) 63.5 (42.2-75.2) % Lymph % (Auto) 23.9 (20.5-50.1) % [place] % (Auto) 11.7 H (2-8) % Eos % (Auto) 0.7 L (1.0-3.0) % Baso % (Auto) 0.2 (0.0-1.0) % Sodium 142 (136-145) mmol/L Potassium 3.9 (3.5-5.1) mmol/L Chloride 105 (98-107) mmol/L Carbon Dioxide 29 (21-32) mmol/L Anion Gap 11.9 (7-13) mEq/L BUN 13 (7-18) mg/dL Creatinine 0.58 (0.55-1.02) mg/dL Est Cr Clr Drug Dosing 125.86 mL/min Estimated GFR (MDRD) > 60 BUN/Creatinine Ratio 22.4 (No establ ref range) Glucose 97 (70-99) mg/dL Lactic Acid 0.8 (0.4-2.0) mmol/L Calcium 8.5 (8.5-10.1) mg/dL Total Bilirubin 0.7 (0.2-1.0) mg/dL AST 11 L (15-37) U/L ALT 22 (14-59) U/L Alkaline Phosphatase 64 (46-116) U/L Troponin I High Sens (<=51) pg/mL C-Reactive Protein < 0.2 (0.0-0.9) mg/dL Total Protein 7.3 (6.4-8.2) g/dL Albumin 3.8 (3.4-5.0) g/dL Globulin 3.5 Albumin/Globulin Ratio 1.09 Amylase (25-115) U/L Lipase (73-393) U/L Urine Color (YELLOW) Urine Appearance (CLEAR) Urine pH (5.0-9.0) Ur Specific [place] (1.005-1.030) Urine Protein (NEGATIVE) Urine Glucose (UA) (NEGATIVE) Urine Ketones (NEGATIVE) Urine Occult Blood (NEGATIVE) Urine Nitrite (NEGATIVE) Urine Bilirubin (NEGATIVE) Urine Urobilinogen (0.2-1.0) mg/dL Ur Leukocyte Esterase (NEGATIVE) Urine RBC (0-5) /HPF Urine WBC (0-5/HPF) /HPF Ur Epithelial Cells (NOT SEEN) /HPF Urine Bacteria (0-FEW/HPF) /HPF Urine Mucus (NOT SEEN) /LPF Urine HCG, Qual Urine Opiates Screen (NEGATIVE) Ur Oxycodone Screen (NEGATIVE) Urine Methadone Screen (NEGATIVE) Ur Barbiturates Screen (NEGATIVE) U Tricyclic Antidepress (NEGATIVE) Ur Phencyclidine Scrn (NEGATIVE) Ur Amphetamine Screen (NEGATIVE) U Methamphetamines Scrn (NEGATIVE) Urine MDMA Screen (NEGATIVE) U Benzodiazepines Scrn (NEGATIVE) Urine Cocaine Screen (NEGATIVE) U Marijuana (THC) Screen (NEGATIVE) 12/05/20 12/05/20 12/05/20 Range/Units 12:45 13:07 13:07 WBC (5.0-10.0) 10^3/uL RBC (4.2-5.4) 10^6/uL Hgb (12.0-16.0) g/dL Hct (37.0-47.0) % MCV (80-100) fL MCH (27.0-34.0) pg MCHC (33.0-35.0) g/dL Plt Count (150-450) 10^3/uL Neut % (Auto) (42.2-75.2) % Lymph % (Auto) (20.5-50.1) % [place] % (Auto) (2-8) % Eos % (Auto) (1.0-3.0) % Baso % (Auto) (0.0-1.0) % Sodium (136-145) mmol/L Potassium (3.5-5.1) mmol/L Chloride (98-107) mmol/L Carbon Dioxide (21-32) mmol/L Anion Gap (7-13) mEq/L BUN (7-18) mg/dL Creatinine (0.55-1.02) mg/dL Est Cr Clr Drug Dosing mL/min Estimated GFR (MDRD) BUN/Creatinine Ratio (No establ ref range) Glucose (70-99) mg/dL Lactic Acid (0.4-2.0) mmol/L Calcium (8.5-10.1) mg/dL Total Bilirubin (0.2-1.0) mg/dL AST (15-37) U/L ALT (14-59) U/L Alkaline Phosphatase (46-116) U/L Troponin I High Sens < 4 (<=51) pg/mL C-Reactive Protein (0.0-0.9) mg/dL Total Protein (6.4-8.2) g/dL Albumin (3.4-5.0) g/dL Globulin Albumin/Globulin Ratio Amylase 46 (25-115) U/L Lipase 71 L (73-393) U/L Urine Color Dark yellow (YELLOW) Urine Appearance Cloudy (CLEAR) Urine pH 6.0 (5.0-9.0) Ur Specific [place] >= 1.030 (1.005-1.030) Urine Protein 100 H (NEGATIVE) Urine Glucose (UA) Negative (NEGATIVE) Urine Ketones Negative (NEGATIVE) Urine Occult Blood Large H (NEGATIVE) Urine Nitrite Negative (NEGATIVE) Urine Bilirubin Negative (NEGATIVE) Urine Urobilinogen 0.2 (0.2-1.0) mg/dL Ur Leukocyte Esterase Small H (NEGATIVE) Urine RBC Semi-packed H (0-5) /HPF Urine WBC 5-10 H (0-5/HPF) /HPF Ur Epithelial Cells Few (NOT SEEN) /HPF Urine Bacteria Few (0-FEW/HPF) /HPF Urine Mucus Few H (NOT SEEN) /LPF Urine HCG, Qual Urine Opiates Screen Negative (NEGATIVE) Ur Oxycodone Screen Negative (NEGATIVE) Urine Methadone Screen Negative (NEGATIVE) Ur Barbiturates Screen Negative (NEGATIVE) U Tricyclic Antidepress Negative (NEGATIVE) Ur Phencyclidine Scrn Negative (NEGATIVE) Ur Amphetamine Screen Positive H (NEGATIVE) U Methamphetamines Scrn Positive H (NEGATIVE) Urine MDMA Screen Positive H (NEGATIVE) U Benzodiazepines Scrn Negative (NEGATIVE) Urine Cocaine Screen Negative (NEGATIVE) U Marijuana (THC) Screen Positive H (NEGATIVE) 12/05/20 Range/Units 13:07 WBC (5.0-10.0) 10^3/uL RBC (4.2-5.4) 10^6/uL Hgb (12.0-16.0) g/dL Hct (37.0-47.0) % MCV (80-100) fL MCH (27.0-34.0) pg MCHC (33.0-35.0) g/dL Plt Count (150-450) 10^3/uL Neut % (Auto) (42.2-75.2) % Lymph % (Auto) (20.5-50.1) % [place] % (Auto) (2-8) % Eos % (Auto) (1.0-3.0) % Baso % (Auto) (0.0-1.0) % Sodium (136-145) mmol/L Potassium (3.5-5.1) mmol/L Chloride (98-107) mmol/L Carbon Dioxide (21-32) mmol/L Anion Gap (7-13) mEq/L BUN (7-18) mg/dL Creatinine (0.55-1.02) mg/dL Est Cr Clr Drug Dosing mL/min Estimated GFR (MDRD) BUN/Creatinine Ratio (No establ ref range) Glucose (70-99) mg/dL Lactic Acid (0.4-2.0) mmol/L Calcium (8.5-10.1) mg/dL Total Bilirubin (0.2-1.0) mg/dL AST (15-37) U/L ALT (14-59) U/L Alkaline Phosphatase (46-116) U/L Troponin I High Sens (<=51) pg/mL C-Reactive Protein (0.0-0.9) mg/dL Total Protein (6.4-8.2) g/dL Albumin (3.4-5.0) g/dL Globulin Albumin/Globulin Ratio Amylase (25-115) U/L Lipase (73-393) U/L Urine Color (YELLOW) Urine Appearance (CLEAR) Urine pH (5.0-9.0) Ur Specific [place] (1.005-1.030) Urine Protein (NEGATIVE) Urine Glucose (UA) (NEGATIVE) Urine Ketones (NEGATIVE) Urine Occult Blood (NEGATIVE) Urine Nitrite (NEGATIVE) Urine Bilirubin (NEGATIVE) Urine Urobilinogen (0.2-1.0) mg/dL Ur Leukocyte Esterase (NEGATIVE) Urine RBC (0-5) /HPF Urine WBC (0-5/HPF) /HPF Ur Epithelial Cells (NOT SEEN) /HPF Urine Bacteria (0-FEW/HPF) /HPF Urine Mucus (NOT SEEN) /LPF Urine HCG, Qual Negative Urine Opiates Screen (NEGATIVE) Ur Oxycodone Screen (NEGATIVE) Urine Methadone Screen (NEGATIVE) Ur Barbiturates Screen (NEGATIVE) U Tricyclic Antidepress (NEGATIVE) Ur Phencyclidine Scrn (NEGATIVE) Ur Amphetamine Screen (NEGATIVE) U Methamphetamines Scrn (NEGATIVE) Urine MDMA Screen (NEGATIVE) U Benzodiazepines Scrn (NEGATIVE) Urine Cocaine Screen (NEGATIVE) U Marijuana (THC) Screen (NEGATIVE) - Radiology Interpretation Free Text/Narrative:: [facility] Final Radiology Report Call: [phone] assistance Online chat: [email or web address] Name: SANIA SHEFFIELD Age: 20Years F Date: 12/05/2020 SSN: -- : 2000 Study: CR CHEST 1V FRONTAL Requesting Physician: Fabi Farias Images: 1 Addl Studies: Provided Clinical History: Right-sided chest pain, extending into lower right Contrast: Contrast Medium: Contrast Amount: Contrast Method: CONFIDENTIALITY STATEMENT This report is intended only for use by the referring physician, and only in accordance with law. If you received this in error, call [phone]. Page 1 of 1 PROCEDURE INFORMATION: Exam: XR Chest Exam date and time: 12/05/2020 1:59 PM Age: 20 years old Clinical indication: Pain; Right-sided; Additional info: Right-sided chest pain, extending into lower right TECHNIQUE: Imaging protocol: XR of the chest. Views: 1 view. COMPARISON: CR CHEST PA/LAT 07/06/2010 1:50 PM FINDINGS: Lungs: Unremarkable. No consolidation. Pleural spaces: Unremarkable. No pleural effusion. No pneumothorax. Heart/Mediastinum: Unremarkable. No cardiomegaly. Bones/joints: Unremarkable. IMPRESSION: No acute findings. Thank you for allowing us to participate in the care of your patient. Dictated and Authenticated by: Kamran Ybarra MD 12/05/2020 2:14 PM Central Time ([place] & [place]) - Re-Assessments/Exams Free Text/Narrative Re-Assessment/Exam: 12/05/20 CXR obtained. Findings of examination, imaging, and lab work reviewed with patient. Patient instructed to restart her mental health medications as well as follow up with her mental health provider. She was instructed to refrain from recreational drug use and stated her and her parents are currently reviewing treatment centers they can afford. Red flag signs and symptoms which would warrant reevaluation reviewed. Patient verbalized understanding and agreement with the plan of care. Departure - Departure Time of Disposition: 13:58 Disposition: Home, Self-Care 01 Condition: Good Clinical Impression: Atypical chest pain, Methamphetamine use, Cannabis use without complication, Methylenedioxymethyamphetamine (MDMA) use disorder, mild - Discharge Information *PRESCRIPTION DRUG MONITORING PROGRAM REVIEWED*: Not Applicable *COPY OF PRESCRIPTION DRUG MONITORING REPORT IN PATIENT [place]: Not Applicable Instructions: Nonspecific Chest Pain, Adult Forms: ED Department Discharge Additional Instructions: 1.) Restart your previously prescribed mental health medications 2.) Continue with sobriety from recreational drugs. 3.) Continue following with your mental health provider. 4.) Follow up with your primary care provider, or return to the emergency department, with any persistent or worsening symptoms. Sepsis Event Note (ED) - Evaluation Sepsis Screening Result: No Definite Risk
--- NOTE | 2020-12-05 14:14 | CR ---
PROCEDURE INFORMATION: Exam: XR Chest Exam date and time: 12/05/2020 1:59 PM Age: 20 years old Clinical indication: Pain; Right-sided; Additional info: Right-sided chest pain, extending into lower right TECHNIQUE: Imaging protocol: XR of the chest. Views: 1 view. COMPARISON: CR CHEST PA/LAT 07/06/2010 1:50 PM FINDINGS: Lungs: Unremarkable. No consolidation. Pleural spaces: Unremarkable. No pleural effusion. No pneumothorax. Heart/Mediastinum: Unremarkable. No cardiomegaly. Bones/joints: Unremarkable. IMPRESSION: No acute findings.
== END 2020-12-05 14:32 | disposition home or self-care (01) ==
LOC: DL.ED 11:59
DX: R07.89 Other chest pain (principal); F15.90 Other stimulant use, unspecified, uncomplicated; F12.90 Cannabis use, unspecified, uncomplicated; Z72.0 Tobacco use
CPT/HCPCS: 36415; 71045; 80053; 80305-QW; 81001; 81025; 82150; 83605; 83690; 84484; 85025; 86140; 87086; 93005; 99284-25

== ENCOUNTER 2023-08-17 06:40 | Inpatient (IN) | payer MEDICAID ==
[2023-08-17 07:31] LABS: BASOPHILS PERCENT AUTO 0.2 % (0.0-1.0); EOSINOPHILS PERCENT AUTO 0.5 % (1.0-3.0); HEMATOCRIT 39.6 % (37.0-47.0); HEMOGLOBIN 12.9 g/dL (12.0-16.0); LYMPHOCYTES PERCENT AUTO 10.6 % (20.5-50.1); MEAN CORPUSCULAR HEMOGLOBIN 30.1 pg (27.0-34.0); MEAN CORPUSCULAR HGB CONC 32.6 g/dL (33.0-35.0); MEAN CORPUSCULAR VOLUME 92.5 fL (80-100); MONOCYTES PERCENT AUTO 12.7 % (2-8); PLATELET COUNT,PLT 243 10^3/uL (150-450); RED BLOOD CELL COUNT 4.28 10^6/uL (4.2-5.4); WHITE BLOOD CELL COUNT,WBC 10.8 10^3/uL (5.0-10.0)
[2023-08-17] MEDS: Sodium Chloride 0.9% 1,000 ML IV ONE ×3 (07:31→08:31)
[2023-08-17] MEDS: Ondansetron 4 MG/2 ML SDV IV ONE (07:31)
[2023-08-17] MEDS: Acetaminophen 500 MG Tab PO ONE (07:31)
[2023-08-17] MEDS: Ketorolac 30 MG/ML SDV IVPUSH ONE (07:31)
[2023-08-17] MEDS: Sodium Chloride 0.9% 10 ML Syringe FLUSH PRN (07:33)
[2023-08-17 07:46] LABS: A/G RATIO 0.8; ALBUMIN 3.4 g/dL (3.4-5.0); ANION GAP 16.8 mEq/L (7-13); BILIRUBIN TOTAL 0.7 mg/dL (0.2-1.0); BUN/CREATININE RATIO 13.8 (No establ ref range); CALCIUM 8.2 mg/dL (8.5-10.1); CREATININE 0.8 mg/dL (0.55-1.02); EST CRCL DRUG DOSING (CG) 88.93 mL/min; POTASSIUM,K 3.8 mmol/L (3.5-5.1); PROTEIN TOTAL,TP 7.9 g/dL (6.4-8.2)
[2023-08-17 07:49] LABS: LACTIC ACID 1.2 mmol/L (0.4-2.0)
[2023-08-17 07:50] LABS: CORONAVIRUS COVID-19 NAA NEGATIVE (NEGATIVE); INFLUENZA A NAA NEGATIVE (NEGATIVE); INFLUENZA B NAA NEGATIVE (NEGATIVE); RESPIRATORY SYNCYTIAL VIR NAA NEGATIVE (NEGATIVE)
[2023-08-17] MEDS: diphenhydrAMINE 50 MG/ML SDV IVPUSH ONE (08:30)
[2023-08-17] MEDS: Piperacillin/Tazobactam 4.5 GM in Sodium Chloride 0.9% 100 ML IV ONE (08:34)
[2023-08-17 08:43] LABS: APPEARANCE,URINE SLIGHTLY CLOUDY (CLEAR); BILIRUBIN,URINE NEGATIVE (NEGATIVE); COLOR,URINE YELLOW (YELLOW); GLUCOSE,URINE NEGATIVE (NEGATIVE); KETONES,URINE 40 (NEGATIVE); LEUKOCYTE ESTERASE,URINE SMALL (NEGATIVE); NITRITE,URINE POSITIVE (NEGATIVE); OCCULT BLOOD,URINE MODERATE (NEGATIVE); PROTEIN,URINE >=300 (NEGATIVE)
[2023-08-17 08:46] LABS: AMPHETAMINES,URINE NEGATIVE (NEGATIVE); BARBITURATES,URINE NEGATIVE (NEGATIVE); BENZODIAZEPINE,URINE NEGATIVE (NEGATIVE); MDMA (ECSTASY), URINE NEGATIVE (NEGATIVE); METHADONE,URINE NEGATIVE (NEGATIVE); METHAMPHETAMINES,URINE NEGATIVE (NEGATIVE); OPIATES,URINE NEGATIVE (NEGATIVE); OXYCODONE,URINE NEGATIVE (NEGATIVE); PHENCYCLIDINE,URINE NEGATIVE (NEGATIVE); TCA,URINE NEGATIVE (NEGATIVE)
[2023-08-17] MEDS: Butorphanol 2 MG/ML SDV IVPUSH ONE (08:46)
[2023-08-17 08:53] LABS: AMORPHOUS SEDIMENT,URINE MODERATE /HPF (NOT SEEN); BACTERIA,URINE MANY /HPF (0-FEW/HPF); EPITHELIAL CELLS,URINE MODERATE /HPF (NOT SEEN); MUCUS,URINE MODERATE /LPF (NOT SEEN); RBC,URINE 0-5 /HPF (0-5); WBC,URINE SEMI-PACKED /HPF (0-5/HPF)
[2023-08-17] MEDS: Iopamidol 612 MG/ML 100 ML Bottle IVPUSH ONE (09:22)
[2023-08-17] MEDS: metroNIDAZOLE/Normal Saline 500 MG in Premix Bag 1 BAG IV ONE (10:26)
[2023-08-17] MEDS ORDERED: Metoprolol Tartrate 5 MG/5 ML SDV IVPUSH PRN (11:38)
[2023-08-17] MEDS ORDERED: hydrALAZINE 20 MG/ML SDV IVPUSH PRN (11:38)
[2023-08-17] MEDS ORDERED: Albuterol/Ipratropium 3.0-0.5 MG/3 ML Neb Soln NEB PRN (11:43)
[2023-08-17] MEDS ORDERED: Polyethylene Glycol 3350 Powder 17 GM Packet PO PRN (11:43)
[2023-08-17] MEDS ORDERED: Acetaminophen 325 MG Tab PO PRN (11:43)
[2023-08-17] MEDS ORDERED: Magnesium Hydroxide 400 MG/5 ML Susp 30 ML Cup PO PRN (11:43)
[2023-08-17] MEDS ORDERED: Sennosides/Docusate Sodium 50-8.6 MG Tab PO PRN (11:43)
[2023-08-17] MEDS ORDERED: Naloxone 2 MG/2 ML Syringe IVPUSH PRN (11:43)
[2023-08-17] MEDS: Ampicillin/Sulbactam Na 1.5 GM in Sodium Chloride 0.9% 100 ML IV SCH (12:23)
[2023-08-17] MEDS: Hydrocortisone Sodium Succinate 100 MG/2 ML SDV IVPUSH SCH (12:23)
[2023-08-17 12:24] LABS: LACTIC ACID 0.5 mmol/L (0.4-2.0)
[2023-08-17] MEDS: Midodrine 5 MG Tab PO PRN (12:24)
[2023-08-17] MEDS: Lactated Ringers 1,000 ML IV SCH (12:51)
[2023-08-17] MEDS: Saccharomyces Boulardii (Probiotic) 250 MG Cap PO SCH (21:01)
[2023-08-17] MEDS: Temazepam 15 MG Cap PO PRN (21:01)
[2023-08-17] MEDS: metroNIDAZOLE 250 MG Tab PO SCH (21:01)
[2023-08-17] MEDS: HYDROmorphone 0.5 MG/0.5 ML Syringe IVPUSH PRN (23:30)
[2023-08-18 07:07] LABS: BASOPHILS PERCENT AUTO 0.1 % (0.0-1.0); HEMATOCRIT 36.7 % (37.0-47.0); HEMOGLOBIN 11.7 g/dL (12.0-16.0); LYMPHOCYTES PERCENT AUTO 10.3 % (20.5-50.1); MEAN CORPUSCULAR HEMOGLOBIN 30.1 pg (27.0-34.0); MEAN CORPUSCULAR HGB CONC 31.9 g/dL (33.0-35.0); MEAN CORPUSCULAR VOLUME 94.3 fL (80-100); MONOCYTES PERCENT AUTO 7.2 % (2-8); NEUTROPHILS PERCENT AUTO 82.4 % (42.2-75.2); PLATELET COUNT,PLT 250 10^3/uL (150-450); RED BLOOD CELL COUNT 3.89 10^6/uL (4.2-5.4); WHITE BLOOD CELL COUNT,WBC 8.6 10^3/uL (5.0-10.0)
[2023-08-18 07:17] LABS: ALBUMIN 2.7 g/dL (3.4-5.0); ANION GAP 13.3 mEq/L (7-13); BILIRUBIN TOTAL 0.3 mg/dL (0.2-1.0); BUN/CREATININE RATIO 11.7 (No establ ref range); C-REACTIVE PROTEIN 9.86 ng/dL (<=0.50); CALCIUM 7.8 mg/dL (8.5-10.1); CREATININE 0.6 mg/dL (0.55-1.02); EST CRCL DRUG DOSING (CG) 118.57 mL/min; POTASSIUM,K 4.3 mmol/L (3.5-5.1); PROTEIN TOTAL,TP 6.7 g/dL (6.4-8.2)
[2023-08-18 07:21] LABS: A/G RATIO 0.68
[2023-08-18] MEDS: Ketorolac 30 MG/ML SDV IVPUSH PRN (08:22)
[2023-08-18] MEDS: VANCOmycin 1.5 GM/300 ML 300 ML IV SCH (08:30)
[2023-08-18] MEDS: Acetaminophen/Butalbital/Caffeine 325-50-40 MG Tab PO PRN (09:34)
[2023-08-18] MEDS: Ondansetron 4 MG/2 ML SDV IVPUSH PRN (13:35)
[2023-08-18] MEDS: Acetaminophen/oxyCODONE 325-5 MG Tab PO PRN (21:10)
[2023-08-18] MEDS ORDERED: Flumazenil 0.1 MG/ML 5 ML MDV IVPUSH PRN (22:46)
[2023-08-18] MEDS: LORazepam 2 MG/ML SDV IVPUSH ONE (23:22)
[2023-08-19 06:28] LABS: HEMATOCRIT 36.4 % (37.0-47.0); HEMOGLOBIN 11.6 g/dL (12.0-16.0); LYMPHOCYTES PERCENT AUTO 12.7 % (20.5-50.1); MEAN CORPUSCULAR HGB CONC 31.9 g/dL (33.0-35.0); MEAN CORPUSCULAR VOLUME 94.1 fL (80-100); MONOCYTES PERCENT AUTO 5.4 % (2-8); NEUTROPHILS PERCENT AUTO 81.9 % (42.2-75.2); PLATELET COUNT,PLT 294 10^3/uL (150-450); RED BLOOD CELL COUNT 3.87 10^6/uL (4.2-5.4); WHITE BLOOD CELL COUNT,WBC 10.1 10^3/uL (5.0-10.0)
[2023-08-19 06:46] LABS: ALBUMIN 2.6 g/dL (3.4-5.0); ANION GAP 11.2 mEq/L (7-13); BILIRUBIN TOTAL 0.2 mg/dL (0.2-1.0); BUN/CREATININE RATIO 13.3 (No establ ref range); C-REACTIVE PROTEIN 4.7 ng/dL (<=0.50); CALCIUM 7.9 mg/dL (8.5-10.1); CREATININE 0.6 mg/dL (0.55-1.02); EST CRCL DRUG DOSING (CG) 118.57 mL/min; MAGNESIUM 1.8 mg/dL (1.8-2.4); POTASSIUM,K 4.2 mmol/L (3.5-5.1); PROTEIN TOTAL,TP 6.2 g/dL (6.4-8.2)
[2023-08-19 06:55] LABS: A/G RATIO 0.72
[2023-08-23 12:47] LABS: C.TRACHOMATIS BY TMA Negative (Negative); M GENITALIUM Negative (Negative); M GENITALIUM SOURCE Urine; N.GONORRHOEAE BY TMA Negative (Negative); SOURCE Urine
== END 2023-08-19 12:15 | disposition home or self-care (01) | DRG 690 ==
LOC: DL.ED 06:40 → DL.MS 10:33
PROVIDERS: ADMIT Internal Medicine; ATTEND Internal Medicine
DX: A41.9 Sepsis, unspecified organism (principal); N39.0 Urinary tract infection, site not specified; N10 Acute pyelonephritis; F41.9 Anxiety disorder, unspecified; F32.A Depression, unspecified; F90.9 Attention-deficit hyperactivity disorder, unspecified type; D64.9 Anemia, unspecified; N76.0 Acute vaginitis; D72.829 Elevated white blood cell count, unspecified; T88.59XA Other complications of anesthesia, initial encounter; G44.40 Drug-induced headache, not elsewhere classified, not intractable; I95.9 Hypotension, unspecified; R73.9 Hyperglycemia, unspecified; E86.0 Dehydration; G89.29 Other chronic pain; B96.20 Unspecified Escherichia coli [E. coli] as the cause of diseases classified elsewhere; Z86.16 Personal history of COVID-19
CPT/HCPCS: 0241U; 36415; 70450; 74177; 80053; 80202; 80305; 81001; 81025; 82533; 83605; 83735; 84145; 85025; 86140; 87040; 87081; 87086; 87088; 87186; 87430; 87491; 87563; 87591; 96361; 96365; 96366; 96367; 96375; 99285; A9270-GY; J0295; J0595; J1170; J1200; J1720; J1836; J1885; J2060; J2405; J2543; J3370; J3490; J7030; J7050; J7120; Q9967

== ENCOUNTER 2024-09-12 20:46 | Emergency (ER) | payer MEDICAID ==
[2024-09-12] MEDS ORDERED: Sodium Chloride 0.9% 10 ML Syringe FLUSH PRN (21:16)
[2024-09-12] MEDS: LORazepam 2 MG/ML SDV IVPUSH ONE (21:27)
[2024-09-12] MEDS: Sodium Chloride 0.9% 1,000 ML IV ONE (21:27)
[2024-09-12 21:30] LABS: APPEARANCE,URINE CLOUDY (CLEAR); BILIRUBIN,URINE NEGATIVE (NEGATIVE); COLOR,URINE DARK YELLOW (YELLOW); GLUCOSE,URINE NEGATIVE (NEGATIVE); KETONES,URINE 15 (NEGATIVE); LEUKOCYTE ESTERASE,URINE NEGATIVE (NEGATIVE); NITRITE,URINE NEGATIVE (NEGATIVE); OCCULT BLOOD,URINE LARGE (NEGATIVE); PH,URINE 5.5 (5.0-9.0); PROTEIN,URINE 100 (NEGATIVE); UROBILINOGEN,URINE 0.2 mg/dL (0.2-1.0)
[2024-09-12 21:32] LABS: AMPHETAMINES,URINE NEGATIVE (NEGATIVE); BARBITURATES,URINE NEGATIVE (NEGATIVE); BENZODIAZEPINE,URINE NEGATIVE (NEGATIVE); MDMA (ECSTASY), URINE POSITIVE (NEGATIVE); METHADONE,URINE NEGATIVE (NEGATIVE); METHAMPHETAMINES,URINE POSITIVE (NEGATIVE); OPIATES,URINE NEGATIVE (NEGATIVE); OXYCODONE,URINE NEGATIVE (NEGATIVE); PHENCYCLIDINE,URINE NEGATIVE (NEGATIVE); TCA,URINE NEGATIVE (NEGATIVE)
[2024-09-12 21:38] LABS: BACTERIA,URINE FEW /HPF (0-FEW/HPF); EPITHELIAL CELLS,URINE FEW /HPF (NOT SEEN); RBC,URINE >100 /HPF (0-5); WBC,URINE 0-5 /HPF (0-5/HPF)
[2024-09-12 21:39] LABS: AMORPHOUS SEDIMENT,URINE MODERATE /HPF (NOT SEEN)
[2024-09-12 21:40] LABS: BASOPHILS PERCENT AUTO 0.3 % (0.0-1.0); EOSINOPHILS PERCENT AUTO 0.2 % (1.0-3.0); HEMATOCRIT 41.9 % (37.0-47.0); HEMOGLOBIN 14.4 g/dL (12.0-16.0); LYMPHOCYTES PERCENT AUTO 10.2 % (20.5-50.1); MEAN CORPUSCULAR HEMOGLOBIN 31.7 pg (27.0-34.0); MEAN CORPUSCULAR HGB CONC 34.4 g/dL (33.0-35.0); MEAN CORPUSCULAR VOLUME 92.3 fL (80-100); MONOCYTES PERCENT AUTO 6.4 % (2-8); NEUTROPHILS PERCENT AUTO 82.9 % (42.2-75.2); PLATELET COUNT,PLT 326 10^3/uL (150-450); RED BLOOD CELL COUNT 4.54 10^6/uL (4.2-5.4); WHITE BLOOD CELL COUNT,WBC 12.2 10^3/uL (5.0-10.0)
[2024-09-12 22:01] LABS: ALANINE AMINOTRANSFERASE,ALT 34 U/L (14-59); ALBUMIN 4.3 g/dL (3.4-5.0); ALKALINE PHOSPHATASE 106 U/L (46-116); ANION GAP 17.8 mEq/L (7-13); ASPARTATE AMNIOTRANSFERASE,AST 32 U/L (15-37); BILIRUBIN TOTAL 1.3 mg/dL (0.2-1.0); BLOOD UREA NITROGEN,BUN 13 mg/dL (7-18); BUN/CREATININE RATIO 16.7 (No establ ref range); CALCIUM 9.1 mg/dL (8.5-10.1); CARBON DIOXIDE,CO2 25 mmol/L (21-32); CHLORIDE,CL 106 mmol/L (98-107); CREATININE 0.78 mg/dL (0.55-1.02); EST CRCL DRUG DOSING (CG) 78.51 mL/min; ESTIMATED GFR 107 mL/min (>=60); ETHANOL BLOOD MEDICAL < 3 mg/dL (0); GLUCOSE RANDOM 110 mg/dL (70-99); POTASSIUM,K 3.8 mmol/L (3.5-5.1); PROTEIN TOTAL,TP 8.4 g/dL (6.4-8.2); SODIUM,NA 145 mmol/L (136-145)
[2024-09-12 22:04] LABS: LACTIC ACID 1.5 mmol/L (0.4-2.0)
== END 2024-09-12 22:10 | disposition home or self-care (01) ==
LOC: DL.ED 20:46
DX: F41.9 Anxiety disorder, unspecified (principal); F15.10 Other stimulant abuse, uncomplicated; F17.200 Nicotine dependence, unspecified, uncomplicated; Z79.899 Other long term (current) drug therapy
CPT/HCPCS: 36415; 80053; 80305; 80307; 81001; 81025; 83605; 85025; 96374; 99284; J2060; J7030

== ENCOUNTER 2024-11-29 18:35 | Emergency (ER) | payer MEDICAID ==
[2024-11-29 19:04] LABS: APPEARANCE,URINE CLEAR (CLEAR); GLUCOSE,URINE NEGATIVE (NEGATIVE); OCCULT BLOOD,URINE NEGATIVE (NEGATIVE)
[2024-11-29 19:14] LABS: EPITHELIAL CELLS,URINE MODERATE /HPF (NOT SEEN)
[2024-11-29 19:53] LABS: BASOPHILS PERCENT AUTO 0.2 % (0.0-1.0); EOSINOPHILS PERCENT AUTO 1.0 % (1.0-3.0); LYMPHOCYTES PERCENT AUTO 20.6 % (20.5-50.1); MONOCYTES PERCENT AUTO 7.6 % (2-8); NEUTROPHILS PERCENT AUTO 70.6 % (42.2-75.2); PLATELET COUNT,PLT 278 10^3/uL (150-450); RED BLOOD CELL COUNT 3.83 10^6/uL (4.2-5.4); WHITE BLOOD CELL COUNT,WBC 9.0 10^3/uL (5.0-10.0)
[2024-11-29] MEDS: Ondansetron 4 MG Tab.DIS PO ONE (20:38)
== END 2024-11-29 20:47 | disposition home or self-care (01) ==
LOC: DL.ED 18:35
DX: O20.9 Hemorrhage in early pregnancy, unspecified (principal); O21.9 Vomiting of pregnancy, unspecified; Z3A.01 Less than 8 weeks gestation of pregnancy; Z79.899 Other long term (current) drug therapy
CPT/HCPCS: 36415; 81001; 81025; 84702; 85025; 87086; 99284; A9270